=== PATIENT | female | born 1955 | race Caucasian/White ===

== ENCOUNTER 2017-08-11 21:38 | Inpatient (IN) | payer BC, OTHER ==
[2017-08-11 21:38] VITALS: BMI 34.7
[2017-08-11] MEDS ORDERED: Sodium Chloride 0.9% 1,000 ML IV STA (22:44)
[2017-08-11 23:07] LABS: URINE BILIRUBIN NEGATIVE (NEGATIVE); URINE BLOOD NEGATIVE (NEGATIVE); URINE GLUCOSE (UA) NEGATIVE (NEGATIVE); URINE KETONE NEGATIVE (NEGATIVE); URINE LEUKOCYTE ESTERASE NEGATIVE Leu/uL (NEGATIVE); URINE PROTEIN TRACE mg/dL (<30 mg/dL); URINE UROBILINOGEN 0.2 E.U./dL (<1 E.U./dL)
[2017-08-11 23:09] LABS: BASO # 0.03 K/mm3 (0.0-2.0); BASO % 0.2 % (0.0-3.0); GRAN # 14.57 (1.4-6.5); GRAN % 85.7 % (50.0-68.0); HEMATOCRIT 40.4 % (36.0-48.0); LYMPH # 1.4 (1.2-3.4); LYMPH % 7.9 % (22.0-35.0); MEAN CELL VOLUME 85.6 fl (80.0-105.0); MEAN CORPUSCULAR HEMOGLOBIN 28.4 pg (25.0-35.0); MEAN CORPUSCULAR HGB CONC 33.2 g/dl (31.0-37.0); MEAN PLATELET VOLUME 10.2 fl (7.0-11.0); MONO # 1.1 (0.1-0.6); MONO % 6.2 % (1.0-6.0); RED CELL DISTRIBUTION WIDTH 13.9 % (11.5-14.5)
[2017-08-11 23:11] LABS: URINE APPEARANCE CLEAR (CLEAR); URINE COLOR YELLOW (YELLOW)
[2017-08-11 23:18] LABS: ALB/GLOB RATIO 1.1 (1.1-1.8); ALKALINE PHOSPHATASE 76 U/L (38-126); ALT/SGPT 27 U/L (7-56); AST/SGOT 26 U/L (14-36); BLOOD UREA NITROGEN 16 mg/dL (7-21); CALCIUM 9.4 mg/dL (8.4-10.5); CARBON DIOXIDE 31 mmol/L (21-33); CHLORIDE 99 mmol/L (95-110); GFR AFRICAN-AMERICAN > 60; GLUCOSE,RANDOM 138 mg/dL (70-110); LIPASE 84 U/L (23-300); POTASSIUM 3.6 mmol/L (3.6-5.0); SODIUM 140 mmol/L (132-148); TOTAL PROTEIN 7.7 g/dL (5.8-8.3)
[2017-08-11 23:22] LABS: URINE BACTERIA FEW (NEG); URINE EPITHELIAL CELLS 0 - 2 /hpf (0-5); URINE RBC 0 - 2 /hpf (0-2); URINE WBC 0 - 2 /hpf (0-6)
[2017-08-11 23:23] LABS: URINE AMORPHOUS SEDIMENT OCC
--- NOTE | 2017-08-11 23:38 | ED PDOC ---
Arrival/HPI <Ahsan Johnson - Last Filed: 08/12/17 05:25> - General Historian: Patient - History of Present Illness Time/Duration: < week (3-4 days) Symptom Onset: Gradual Symptom Course: Unchanged Activities at Onset: Light Context: Home <Iza Muller PA-C - Last Filed: 08/12/17 15:12> - General Chief Complaint: Abdominal Pain Time Seen by Provider: 08/11/17 22:23 - History of Present Illness Narrative History of Present Illness (Text): 08/11/17 22:40 62 year old female who presents to the Emergency department complaining of intermittent suprapubic pain for the past 3-4 days. Patient reports pain radiates to her back with associated nausea, vomiting, chills, and dysuria today. Patient states she saw her PMD when her symptoms started initially who ordered outpatient ultrasounds but does not know the results yet. Patient states she was at [facility] earlier today and waited in the ER but was never actually evaluated. Patient denies any colonscopy/endoscopy, chest pain, shortness of breath, nausea, vomiting, diarrhea, constipation, neck pain, headache, dizziness, or any other complaints. PMD: Dr. Xena Garcia (Iza Muller PA-C) Past Medical History - Provider Review Nursing Documentation Reviewed: Yes - Infectious Disease Hx of Infectious Diseases: None - Cardiac Hx Cardiac Disorders: Yes Hx Hypertension: Yes - Pulmonary Hx Respiratory Disorders: No - Neurological Hx Neurological Disorder: No - HEENT Hx HEENT Disorder: Yes (uses glasses) - Renal Hx Renal Disorder: No - Endocrine/Metabolic Hx Endocrine Disorders: Yes Hx Diabetes Mellitus Type 2: Yes Hx Hypothyroidism: Yes - Hematological/Oncological Hx Blood Disorders: No - Integumentary Hx Dermatological Disorder: No - Musculoskeletal/Rheumatological Hx Falls: No - Gastrointestinal Hx Gastrointestinal Disorders: No - Genitourinary/Gynecological Hx Genitourinary Disorders: No - Psychiatric Hx Psychophysiologic Disorder: No Hx Substance Use: No - Anesthesia Hx Anesthesia: No <Iza Muller PA-C - Last Filed: 08/12/17 15:12> Family/Social History - Physician Review Nursing Documentation Reviewed: Yes Family/Social History: Unknown Family HX Smoking Status: Never Smoked Hx Alcohol Use: No Hx Substance Use: No <Iza Muller PA-C - Last Filed: 08/12/17 15:12> Allergies/Home Meds <ElizabethAhsan - Last Filed: 08/12/17 05:25> <Iza Muller PA-C - Last Filed: 08/12/17 15:12> Allergies/Adverse Reactions: Allergies No Known Allergies Allergy (Verified 08/11/17 21:48) Home Medications: Home Meds Medication Instructions Recorded Confirmed Atenolol [Tenormin] 25 mg PO DAILY 03/21/15 08/12/17 Levothyroxine [Synthriod Inj] 88 mcg IV DAILY 03/21/15 08/12/17 Metformin HCl [Glumetza] 1,000 mg PO DAILY 03/21/15 08/12/17 Review of Systems - Physician Review All systems were reviewed & negative as marked: Yes - Review of Systems Constitutional: Other (+chills). absent: Fevers Eyes: Normal ENT: Normal Respiratory: Normal. absent: SOB, Cough Cardiovascular: Normal. absent: Chest Pain Gastrointestinal: Abdominal Pain, Nausea, Vomiting. absent: Diarrhea Genitourinary Female: Dysuria Musculoskeletal: absent: Neck Pain Skin: Normal. absent: Rash Neurological: Normal. absent: Headache, Dizziness Endocrine: Normal Hemo/Lymphatic: Normal Psychiatric: Normal <Iza Muller PA-C - Last Filed: 08/12/17 15:12> Physical Exam Vital Signs Reviewed: Yes Temperature: Afebrile Blood Pressure: Normal Pulse: Regular Respiratory Rate: Normal Appearance: Positive for: Well-Appearing, Non-Toxic, Comfortable Pain Distress: None Mental Status: Positive for: Alert and Oriented X 3 Finger Stick Blood Glucose: 165 - Systems Exam Head: Present: Atraumatic, Normocephalic Pupils: Present: PERRL Extroacular Muscles: Present: EOMI Conjunctiva: Present: Normal Mouth: Present: Moist Mucous Membranes Neck: Present: Normal Range of Motion Respiratory/Chest: Present: Clear to Auscultation, Good Air Exchange. No: Respiratory Distress, Accessory Muscle Use Cardiovascular: Present: Regular Rate and Rhythm, Normal S1, S2. No: Murmurs Abdomen: Present: Tenderness (Mild suprapubic tenderness), Normal Bowel Sounds. No: Distention, Peritoneal Signs Back: Present: Normal Inspection Upper Extremity: Present: Normal Inspection. No: Cyanosis, Edema Lower Extremity: Present: Normal Inspection. No: Edema Neurological: Present: GCS=15, CN II-XII Intact, Speech Normal Skin: Present: Warm, Dry, Normal Color. No: Rashes Psychiatric: Present: Alert, Oriented x 3, Normal Insight, Normal Concentration <Iza Muller PA-C - Last Filed: 08/12/17 15:12> Vital Signs Temp Pulse Resp BP Pulse Ox 08/12/17 05:15 83 16 100/62 93 L 08/12/17 04:00 99.4 F 78 18 94/57 L 96 08/12/17 00:06 100.4 F H 08/11/17 23:45 100.4 F H 98 H 18 146/55 L 95 08/11/17 21:40 98.1 F 82 20 130/93 H 96 Medical Decision Making <Ahsan Johnson - Last Filed: 08/12/17 05:25> <Iza Muller PA-C - Last Filed: 08/12/17 15:12> ED Course and Treatment: 08/11/17 22:40 Impression: 62 year old female complaining of suprapubic pain radiating to back with nausea , vomiting, chills, and dysuria. Differential Diagnosis included but are not limited to: UTI, pyelonephritis, colitis Plan: -- EKG -- Labs, lipase -- Urinalysis, urine cultures -- IV fluids -- Toradol -- Zofran -- Patient placed in ED observation (Iza Muller PA-C) - Lab Interpretations Lab Results: 08/11/17 22:25 08/11/17 22:25 Lab Results 08/11/17 22:58: Urine Color Yellow, Urine Appearance Clear, Urine pH 8.0, Ur Specific [place] 1.015, Urine Protein Trace H, Urine Glucose (UA) Negative, Urine Ketones Negative, Urine Blood Negative, Urine Nitrate Negative, Urine Bilirubin Negative, Urine Urobilinogen 0.2, Ur Leukocyte Esterase Negative, Urine RBC 0 - 2, Urine WBC 0 - 2, Ur Epithelial Cells 0 - 2, Amorphous Sediment Occ, Urine Bacteria Few 08/11/17 22:25: Sodium 140, Potassium 3.6, Chloride 99, Carbon Dioxide 31, Anion Gap 14, BUN 16, Creatinine 0.6, Est GFR ( Amer) > 60, Est GFR (Non- Af Amer) > 60, Random Glucose 138 H, Calcium 9.4, Total Bilirubin 1.0, AST 26, ALT 27, Alkaline Phosphatase 76, Total Protein 7.7, Albumin 4.0, Globulin 3.6, Albumin/Globulin Ratio 1.1, Lipase 84 08/11/17 22:25: WBC 17.0 H D, RBC 4.72, Hgb 13.4, Hct 40.4, MCV 85.6, MCH 28.4, MCHC 33.2, RDW 13.9, Plt Count 204, MPV 10.2, Gran % 85.7 H, Lymph % (Auto) 7.9 L, Till[place] % (Auto) 6.2 H, Eos % (Auto) 0.0 L, Baso % (Auto) 0.2, Gran # 14.57 H, Lymph # 1.4, Tillman # 1.1 H, Eos # 0.0, Baso # 0.03 - RAD Interpretation Radiology Orders: 08/11/17 23:56 ABD PELVIS PO & IV CONTRAST [CT] Stat 08/11/17 23:57 CHEST TWO VIEWS (PA/LAT) [RAD] Stat - Medication Orders Current Medication Orders: Acetaminophen (Tylenol 325mg Tab) 650 mg PO Q6H PRN PRN Reason: Fever >100.4 F Acetaminophen (Tylenol 325mg Tab) 650 mg PO Q6H PRN PRN Reason: Pain, moderate (4-7) Hydromorphone HCl (Dilaudid) 0.5 mg IVP Q4H PRN PRN Reason: Pain, severe (8-10) Lactated Ringer's (Lactated Ringer's) 1,000 mls @ 125 mls/hr IV .Q8H [facility] Last Admin: 08/12/17 07:19 Dose: 125 mls/hr eMAR Start Stop Document 08/12/17 07:19 [facility] (Rec: 08/12/17 07:19 [facility] [id number]) Intravenous Solution Start Date 08/12/17 Start Time 07:19 Metronidazole (Flagyl) 500 mg in 100 mls @ 100 mls/hr IVPB Q8 ANA MARIA PRN Reason: Protocol Meropenem 1g/NS 100mL IVPB (Meropenem 1g/Ns 100ml Ivpb) 1 gm in 100 mls @ 100 mls/hr IVPB Q8 ANA MARIA PRN Reason: Protocol Insulin Human Regular (Humulin R Low) 0 units SC ACHS ANA MARIA PRN Reason: Protocol Last Admin: 08/12/17 08:43 Dose: 1 units MAR Blood Glucose Document 08/12/17 08:43 LMN (Rec: 08/12/17 08:43 LMN [id number]) Blood Glucose Finger Stick Blood Glucose (70-120) 181 Subcutaneous Administrations Document 08/12/17 08:43 LMN (Rec: 08/12/17 08:43 LMN [id number]) Injection Site MAR Injection Site Right Arm Charges for Administration # of Subcutaneous Administrations 1 Ondansetron HCl (Zofran Inj) 4 mg IVP Q4H PRN PRN Reason: Nausea/Vomiting Pantoprazole Sodium (Protonix Inj) 40 mg IVP DAILY [facility] Last Admin: 08/12/17 10:28 Dose: 40 mg IVP Administration Document 08/12/17 10:28 LMN (Rec: 08/12/17 10:28 LMN [id number]) Charges for Administration # of IVP Administrations 1 Discontinued Medications Acetaminophen (Tylenol 325mg Tab) 975 mg PO STAT STA Stop: 08/11/17 23:57 Last Admin: 08/12/17 00:06 Dose: 975 mg MAR Pain/Vitals Document 08/12/17 00:06 YP (Rec: 08/12/17 00:06 YP [id number]) Vitals Temperature (97.6 F-99.6 F) 100.4 F Temperature Source Oral Re-Assess: MAR Pain/Vitals Document 08/12/17 01:06 YP (Rec: 08/12/17 01:07 YP [id number]) Pain Reassessment Is This A Pain ReAssessment? No Sleep Is patient sleeping during reassessment? No Presence of Pain Presence of Pain No Hydromorphone HCl (Dilaudid) 0.5 mg IVP Q4H PRN PRN Reason: Pain, severe (8-10) Last Admin: 08/12/17 10:53 Dose: 0.5 mg MAR Pain Assessment Document 08/12/17 10:53 LMN (Rec: 08/12/17 10:53 LMN [id number]) Pain Reassessment Is this a pain reassessment? No Presence of Pain Presence of Pain Yes Pain Scale Used Pain Scale Used Numeric Location Upper or Lower Lower Pain Location Body Site Abdomen Description Description Constant Intensity of Pain at present 5 Pain Behavior Guarding Withdrawal from Touch IVP Administration Document 08/12/17 10:53 LMN (Rec: 08/12/17 10:53 LMN [id number]) Charges for Administration # of IVP Administrations 1 Sodium Chloride (Sodium Chloride 0.9%) 1,000 mls @ 1,000 mls/hr IV .Q1H STA Stop: 08/11/17 23:43 Last Admin: 08/11/17 23:03 Dose: 1,000 mls/hr eMAR Start Stop Document 08/11/17 23:03 YP (Rec: 08/11/17 23:03 YP [id number]) Intravenous Solution Start Date 08/11/17 Start Time 23:03 End Date 08/12/17 End time 00:03 Total Infusion Time 60 Piperacillin Sod/Tazobactam Sod (Zosyn 3.375 In Ns 100ml) 100 mls @ 200 mls/hr IV STAT STA PRN Reason: Protocol Stop: 08/12/17 05:17 Last Admin: 08/12/17 05:11 Dose: 200 mls/hr eMAR Start Stop Document 08/12/17 05:11 YP (Rec: 08/12/17 05:11 YP [id number]) Intravenous Solution Start Date 08/12/17 Start Time 05:11 End Date 08/12/17 End time 05:41 Total Infusion Time 30 Metronidazole (Flagyl) 500 mg in 100 mls @ 100 mls/hr IVPB STAT STA PRN Reason: Protocol Stop: 08/12/17 05:48 Last Admin: 08/12/17 07:09 Dose: 100 mls/hr eMAR Start Stop Document 08/12/17 07:09 [facility] (Rec: 08/12/17 07:10 [facility] [id number]) Intravenous Solution Start Date 08/12/17 Start Time 07:10 End Date 08/12/17 End time 08:10 Total Infusion Time 60 Piperacillin Sod/Tazobactam Sod (Zosyn 3.375 In Ns 100ml) 100 mls @ 200 mls/hr IVPB Q6 ANA MARIA PRN Reason: Protocol Stop: 08/12/17 18:29 Potassium Chloride (Potassium Chloride 10 Meq/100 Ml) 10 meq in 100 mls @ 100 mls/hr IVPB ONCE ONE Stop: 08/12/17 12:01 Vancomycin HCl (Vancomycin 1gm) 1 gm in 250 mls @ 167 mls/hr IVPB STAT STA PRN Reason: Protocol Stop: 08/12/17 12:28 Last Admin: 08/12/17 11:38 Dose: 167 mls/hr eMAR Start Stop Document 08/12/17 11:38 LMN (Rec: 08/12/17 11:38 LMN [id number]) Intravenous Solution Start Date 08/12/17 Start Time 11:40 Iohexol (Omnipaque 240 (50 Ml)) Confirm Administered Dose 50 ml .ROUTE .STK-MED ONE Stop: 08/12/17 00:24 Iohexol (Omnipaque 350 100 Ml) Confirm Administered Dose 350 mg .ROUTE .STK-MED ONE Stop: 08/12/17 02:11 Ketorolac Tromethamine (Toradol) 30 mg IVP STAT STA Stop: 08/11/17 22:45 Last Admin: 08/11/17 23:03 Dose: 30 mg TA Pain Assessment Document 08/11/17 23:03 YP (Rec: 08/11/17 23:03 YP [id number]) Pain Reassessment Is this a pain reassessment? No Sleep Is patient sleeping during reassessment? No Presence of Pain Presence of Pain Yes IVP Administration Document 08/11/17 23:03 YP (Rec: 08/11/17 23:03 YP [id number]) Charges for Administration # of IVP Administrations 1 Re-Assess: MAR Pain Assessment Document 08/12/17 00:03 YP (Rec: 08/12/17 01:07 YP [id number]) Pain Reassessment Is this a pain reassessment? Yes Sleep Is patient sleeping during reassessment? No Presence of Pain Presence of Pain No Morphine Sulfate (Morphine) 1 mg IVP STAT STA Stop: 08/12/17 05:58 Last Admin: 08/12/17 07:20 Dose: 1 mg MAR Pain Assessment Document 08/12/17 07:20 SONYA (Rec: 08/12/17 07:21 [facility] [id number]) Pain Reassessment Is this a pain reassessment? No Presence of Pain Presence of Pain Yes Pain Scale Used Pain Scale Used Numeric Location Pain Location Body Site Abdomen Description Description Constant Intensity of Pain at present 6 Acceptable Level of Pain 2 Pain Behavior Facial Grimacing Alleviating Factors/Management Medication Techniques Alleviating Factors Medication IVP Administration Document 08/12/17 07:20 [facility] (Rec: 08/12/17 07:21 [facility] [id number]) Charges for Administration # of IVP Administrations 1 Ondansetron HCl (Zofran Inj) 4 mg IVP STAT STA Stop: 08/11/17 22:45 Last Admin: 08/11/17 23:03 Dose: 4 mg IVP Administration Document 08/11/17 23:03 YP (Rec: 08/11/17 23:03 YP [id number]) Charges for Administration # of IVP Administrations 1 ED OBSERVATION <Ahsan Johnson - Last Filed: 08/12/17 05:25> Date of observation admission: 08/11/17 Time of observation admission: 23:00 <Iza Muller PA-C - Last Filed: 08/12/17 15:12> - Observation admission statement Patient is being placed in observation because:: abdominal pain, elevated WBC (Iza Muller PA-C) - Goals of Observation Goals of observation are:: monitor signs and symptoms (Iza Muller PA-C) - Progress Note Progress Note: 08/12/17 02:00 Case endorsed to me by VERONA Muller, pending CT scan, re-evaluation, and disposition. 08/12/17 04:44 Reviewed radiology, CT Abdomen and Pelvis shows: CT Abdomen and Pelvis shows: LIMITATIONS: Mild to moderate streak/motion artifact. LOWER THORAX: Heart appears mildly enlarged. Small hiatal hernia. ABDOMEN: LIVER: .Fatty infiltration of the liver. GALLBLADDER AND BILE DUCTS: No CT evidence of acute cholecystitis. No evidence of significant biliary ductal dilatation. PANCREAS: No CT evidence of acute pancreatitis. SPLEEN: No acute abnormality of the spleen identified. ADRENALS: No acute abnormality of the adrenal glands identified. KIDNEYS AND URETERS: No acute abnormality of the kidneys identified. No evidence of significant hydrouereteronephrosis. STOMACH AND BOWEL: See findings below regarding the sigmoid colon. Otherwise, no significant abnormality of the bowel is identified. No evidence of bowel obstruction. APPENDIX: Appendix is seen, directly to the right of the suspected right pelvic abscess described below, however, it appears normal, containing air, with no findings to suggest acute appendicitis. PELVIS: BLADDER: No acute abnormality of the bladder identified. REPRODUCTIVE: See findings below regarding the right adnexa. No acute abnormality of the uterus identified. No evidence of large left adnexal masses. ABDOMEN and PELVIS: INTRAPERITONEAL SPACE: Best seen on images 41 of series 604 and 147 of series 5 , there is a 5 x 3.5 x 4.5 cm ovoid masslike area in the right pelvis, which is highly suspicious for a right pelvic abscess. This contains air within it, including a large air-fluid level, and has a thick, enhancing soft tissue rim. It is centered in the right adnexal region, and the right ovary is not definitely seen as a separate structure. The abscess is most likely the sequela of a previous episode of sigmoid diverticulitis. There is infiltration of the pelvic fat abutting the abscess, compatible with inflammation, which also abuts the sigmoid colon, which is focally thick-walled in the vicinity of this mass. A small amount of nearby fluid is also seen in the right pelvic retroperitoneal space, and there is a small amount of diffuse pelvic free fluid. No evidence of diffuse free intraperitoneal air. BONES/JOINTS: No acute fractures or other acute bony abnormality noted. SOFT TISSUES: No acute abnormality of the visualized soft tissues is seen. VASCULATURE: No evidence of abdominal aortic aneurysm. No evidence of periaortic hemorrhage. LYMPH NODES: No evidence of diffuse lymphadenopathy. IMPRESSION: - Findings highly suspicious for a 5 x 4.5 cm right pelvic abscess. This is centered in the right adnexa, and cannot exclude a right tubo-ovarian abscess. It is most likely related to a a prior episode of sigmoid diverticulitis. - See above for remaining findings. 08/12/17 04:[address] La, rn surgical [employer] credit [employer] manager, who is aware and agrees to evaluate pt. Surgeon credit union manager paged. 08/12/17 05:[address] Daigle, solar energy sales specialist, who states findings are most likely sequela of diverticulitis, however will consult on case if needed. 08/12/17 05:[address] Angulo, medical lead credit union manager, who is aware and agrees with plan. Case discussed with Dr. Rodney Davis, who is aware and agrees with plan. Accepts pt in to hospitalist service. Pt will be admitted to [facility] for abdominal pain, pelvic abscess, and leukocytosis. (Ahsan Johnson) 08/11/17 23:00 Vital signs stable, in no acute distress. 08/11/17 23:56 Labs reviewed, WBC of 17.0, no bandemia, chemistry within normal limits, LFTs normal. No UTI on Urinalysis. Considering temperature and elevated WBC, CT Abdomen and Pelvis ordered. Pt resting comfortably, in no acute distress. 08/12/17 01:55 Pt resting comfortably, no acute distress. Reviewed EKG, NSR at [address]-segment elevations or depressions, no T-wave inversions, normal intervals. Case endorsed to Dr. Johnson, pending CT scan, re-evaluation, and disposition. (Iza Muller PA-C) - PA / SENIOR SHAREPOINT ARCHITECT / Resident Statement MD/DO has reviewed & agrees with the documentation as recorded. MD/DO has examined the patient and agrees with the treatment plan. <Ahsan Johnson - Last Filed: 08/12/17 05:25> - Scribe Statement The provider has reviewed the documentation as recorded by the Scribe <Iza Muller PA-C - Last Filed: 08/12/17 15:12> - Scribe Statement Yasemin Khan Provider Scribe Attestation: All medical record entries made by the Scribe were at my direction and personally dictated by me. I have reviewed the chart and agree that the record accurately reflects my personal performance of the history, physical exam, medical decision making, and the department course for this patient. I have also personally directed, reviewed, and agree with the discharge instructions and disposition. (Iza Muller PA-C) Disposition/Present on Arrival - Present on Arrival Any Indicators Present on Arrival: No History of DVT/PE: No History of Uncontrolled Diabetes: No Urinary Catheter: No History of Decub. Ulcer: No History Surgical Site Infection Following: None - Disposition Have Diagnosis and Disposition been Completed?: Yes Disposition Time: 05:26 Patient Plan: Admission <Ahsan Johnson - Last Filed: 08/12/17 05:25> - Present on Arrival History of DVT/PE: No History of Uncontrolled Diabetes: No Urinary Catheter: No History of Decub. Ulcer: No History Surgical Site Infection Following: None <Iza Muller PA-C - Last Filed: 08/12/17 15:12> - Disposition Diagnosis: Abdominal pain, Pelvic abscess, Leukocytosis Disposition: HOSPITALIZED Patient Problems: Current Active Problems Problem Status Onset Abdominal pain Acute Leukocytosis Acute Pelvic abscess Acute Condition: STABLE
[2017-08-12] MEDS ORDERED: Iohexol 240 (50 ml) ONE (00:23)
[2017-08-12] MEDS ORDERED: Iohexol 350 MG/100 ML VIAL ONE (02:10)
--- NOTE | 2017-08-12 04:17 | CT ---
EXAM: CT Abdomen and Pelvis With Intravenous Contrast EXAM DATE/TIME: 08/11/2017 11:56 PM CLINICAL HISTORY: 62 years old, female; Pain; Abdominal pain; Generalized; Additional info: Fever, abd pain TECHNIQUE: Axial computed tomography images of the abdomen and pelvis with intravenous contrast. All CT scans at this facility use one or more dose reduction techniques, viz.: automated exposure control; ma/kV adjustment per patient size (including targeted exams where dose is matched to indication; i.e. head); or iterative reconstruction technique. Coronal and sagittal reformatted images were created and reviewed. CONTRAST: 96 mL of omni 350 administered intravenously. COMPARISON: Recent pelvic ultrasound 08/08/2017 7:39 AM FINDINGS: LIMITATIONS: Mild to moderate streak/motion artifact. LOWER THORAX: Heart appears mildly enlarged. Small hiatal hernia. ABDOMEN: LIVER: .Fatty infiltration of the liver. GALLBLADDER AND BILE DUCTS: No CT evidence of acute cholecystitis. No evidence of significant biliary ductal dilatation. PANCREAS: No CT evidence of acute pancreatitis. SPLEEN: No acute abnormality of the spleen identified. ADRENALS: No acute abnormality of the adrenal glands identified. KIDNEYS AND URETERS: No acute abnormality of the kidneys identified. No evidence of significant hydrouereteronephrosis. STOMACH AND BOWEL: See findings below regarding the sigmoid colon. Otherwise, no significant abnormality of the bowel is identified. No evidence of bowel obstruction. APPENDIX: Appendix is seen, directly to the right of the suspected right pelvic abscess described below, however, it appears normal, containing air, with no findings to suggest acute appendicitis. PELVIS: BLADDER: No acute abnormality of the bladder identified. REPRODUCTIVE: See findings below regarding the right adnexa. No acute abnormality of the uterus identified. No evidence of large left adnexal masses. ABDOMEN and PELVIS: INTRAPERITONEAL SPACE: Best seen on images 41 of series 604 and 147 of series 5, there is a 5 x 3.5 x 4.5 cm ovoid masslike area in the right pelvis, which is highly suspicious for a right pelvic abscess. This contains air within it, including a large air-fluid level, and has a thick, enhancing soft tissue rim. It is centered in the right adnexal region, and the right ovary is not definitely seen as a separate structure. The abscess is most likely the sequela of a previous episode of sigmoid diverticulitis. There is infiltration of the pelvic fat abutting the abscess, compatible with inflammation, which also abuts the sigmoid colon, which is focally thick-walled in the vicinity of this mass. A small amount of nearby fluid is also seen in the right pelvic retroperitoneal space, and there is a small amount of diffuse pelvic free fluid. No evidence of diffuse free intraperitoneal air. BONES/JOINTS: No acute fractures or other acute bony abnormality noted. SOFT TISSUES: No acute abnormality of the visualized soft tissues is seen. VASCULATURE: No evidence of abdominal aortic aneurysm. No evidence of periaortic hemorrhage. LYMPH NODES: No evidence of diffuse lymphadenopathy. IMPRESSION: - Findings highly suspicious for a 5 x 4.5 cm right pelvic abscess. This is centered in the right adnexa, and cannot exclude a right tubo-ovarian abscess. It is most likely related to a a prior episode of sigmoid diverticulitis. - See above for remaining findings.
[2017-08-12] MEDS ORDERED: Piperacillin/Tazobact 3.375 gm 100 ML IV STA (04:48)
[2017-08-12] MEDS ORDERED: metroNIDAZOLE IV 500 mg/100 ml 500 MG/100 ML BAG IVPB STA (04:49)
[2017-08-12] MEDS ORDERED: Morphine 2 mg/ml ISec IVP STA (05:57)
--- NOTE | 2017-08-12 06:12 | CP.PCM.CON ---
<Елена La - Last Filed: 08/12/17 07:45> History of Present Illness - History of Present Illness History of Present Illness: General surgery consult for Dr. Donna La, PGY-1 Pt S & E at bedside. 62F w/PMH sig for DM consulted for abdominal pain x 1 wk. Pt reports abdominal pain is suprapubic, severe, radiates to low back B/L w/sudden onset, no alleviating or aggravating factors identified. Pt reports previous episode of LLQ abdominal pain, evaluated in [place] with findings of "colon problems"- was instructed to have colonoscopy, which she did not complete. Admits to nausesa, emesis x 3 (nbnb, foodstuff) yesterday, F/C, dysuria. Last BM was one day prior to admission, normal caliber/normal consistency, occasional constipation. Denies diarrhea, hematochezia, hematuria, vaginal d/c, urinary frequency, sexual intercourse. In ED- CT abdomen w/findings of 5 x 4.5 cm right pelvic abscess, centered in right adnexa, and cannot exclude a right tubo-ovarian abscess. It is most likely related to a a prior episode of sigmoid diverticulitis. Leukocytosis of 17, febrile at 100.4 PMH: DM, "thyroid problems" on Levothyroxine PSH: Denies All: NKDA SH: Denies tobacco, Etoh or illicit drug use Review of Systems - Review of Systems All systems: reviewed and no additional remarkable complaints except - Constitutional Constitutional: Chills, Fever - EENT Eyes: absent: Change in Vision Nose/Mouth/Throat: absent: Sore Throat - Cardiovascular Cardiovascular: absent: Chest Pain, Palpitations - Respiratory Respiratory: absent: Cough - Gastrointestinal Gastrointestinal: Abdominal Pain, Constipation (occasional), Nausea, Vomiting. absent: Diarrhea, Hematemesis, Hematochezia, Melena - Genitourinary Genitourinary: Dysuria. absent: Urinary Frequency - Reproductive: Female Reproductive:Female: absent: Vaginal Discharge - Musculoskeletal Musculoskeletal: absent: Numbness, Tingling - Integumentary Integumentary: absent: Rash Past Patient History - Infectious Disease Hx of Infectious Diseases: None - Past Social History Smoking Status: Never Smoked - CARDIAC Hx Cardiac Disorders: Yes Hx Hypertension: Yes - PULMONARY Hx Respiratory Disorders: No - NEUROLOGICAL Hx Neurological Disorder: No - HEENT Hx HEENT Problems: Yes (uses glasses) - RENAL Hx Chronic Kidney Disease: No - ENDOCRINE/METABOLIC Hx Endocrine Disorders: Yes Hx Diabetes Mellitus Type 2: Yes Hx Hypothyroidism: Yes - HEMATOLOGICAL/ONCOLOGICAL Hx Blood Disorders: No - INTEGUMENTARY Hx Dermatological Problems: No - MUSCULOSKELETAL/RHEUMATOLOGICAL Hx Falls: No - GASTROINTESTINAL Hx Gastrointestinal Disorders: No - GENITOURINARY/GYNECOLOGICAL Hx Genitourinary Disorders: No - PSYCHIATRIC Hx Psychophysiologic Disorder: No Hx Substance Use: No - SURGICAL HISTORY Hx Surgeries: No - ANESTHESIA Hx Anesthesia: No Meds Allergies/Adverse Reactions: Allergies Allergy/AdvReac Type Severity Reaction Status Date / Time No Known Allergies Allergy Verified 08/11/17 21:48 - Medications Medications: Current Medications Acetaminophen (Tylenol 325mg Tab) 650 mg PO Q6H PRN PRN Reason: Fever >100.4 F Acetaminophen (Tylenol 325mg Tab) 650 mg PO Q6H PRN PRN Reason: Pain, moderate (4-7) Lactated Ringer's (Lactated Ringer's) 1,000 mls @ 125 mls/hr IV .Q8H ANA MARIA Piperacillin Sod/Tazobactam Sod (Zosyn 3.375 In Ns 100ml) 100 mls @ 200 mls/hr IVPB Q6 ANA MARIA PRN Reason: Protocol Stop: 08/12/17 12:29 Insulin Human Regular (Humulin R Low) 0 units SC ACHS ANA MARIA PRN Reason: Protocol Ondansetron HCl (Zofran Inj) 4 mg IVP Q4H PRN PRN Reason: Nausea/Vomiting Pantoprazole Sodium (Protonix Inj) 40 mg IVP DAILY [facility] Physical Exam - Constitutional Appears: Non-toxic, No Acute Distress - Head Exam Head Exam: ATRAUMATIC, NORMAL INSPECTION, NORMOCEPHALIC - Eye Exam Eye Exam: EOMI, Normal appearance - ENT Exam ENT Exam: Mucous Membranes Moist, Normal Exam - Neck Exam Neck exam: Positive for: Full Rom, Normal Inspection - Respiratory Exam Respiratory Exam: Clear to Auscultation Bilateral, NORMAL BREATHING PATTERN - Cardiovascular Exam Cardiovascular Exam: REGULAR RHYTHM, +S1, +S2 - GI/Abdominal Exam GI & Abdominal Exam: Diminished Bowel Sounds, Soft, Tenderness (diffuse, especially suprapubic). absent: Distended (obese), Firm, Guarding, Rebound, Rigid - Extremities Exam Extremities exam: Positive for: normal inspection. Negative for: pedal edema - Neurological Exam Neurological exam: Alert, CN II-XII Intact, Oriented x3 - Psychiatric Exam Psychiatric exam: Normal Affect, Normal Mood - Skin Skin Exam: Dry, Intact, Normal Color, Warm Results - Vital Signs Recent Vital Signs: Last Vital Signs Temp 99.4 F 08/12/17 04:00 Pulse 83 08/12/17 05:15 Resp 16 08/12/17 05:15 BP 100/62 08/12/17 05:15 Pulse Ox 93 L 08/12/17 05:15 - Labs Result Diagrams: 08/11/17 22:25 08/11/17 22:25 Assessment & Plan - Assessment and Plan (Free Text) Assessment: 62F w/pelvic abscess, likely 2/2 sigmoid diverticulitis Plan: NPO for now Already on Flagyl, Zosyn Zofran LR@125 pain regimen Recommend IR drainage DW attending Bessie, PGY-1 - Date & Time Date: 08/12/17 Time: 06:11 <Jonas Singh - Last Filed: 08/13/17 21:31> Meds - Medications Medications: Current Medications Acetaminophen (Tylenol 325mg Tab) 650 mg PO Q6H PRN PRN Reason: Pain, moderate (4-7) Hydromorphone HCl (Dilaudid) 0.5 mg IVP Q4H PRN PRN Reason: Pain, severe (8-10) Last Admin: 08/13/17 11:08 Dose: 0.5 mg Lactated Ringer's (Lactated Ringer's) 1,000 mls @ 125 mls/hr IV .Q8H ANA MARIA Last Admin: 08/13/17 15:25 Dose: 125 mls/hr Metronidazole (Flagyl) 500 mg in 100 mls @ 100 mls/hr IVPB Q8 ANA MARIA PRN Reason: Protocol Last Admin: 08/13/17 16:57 Dose: 100 mls/hr Meropenem 1g/NS 100mL IVPB (Meropenem 1g/Ns 100ml Ivpb) 1 gm in 100 mls @ 100 mls/hr IVPB Q8 ANA MARIA PRN Reason: Protocol Last Admin: 08/13/17 15:17 Dose: 100 mls/hr Insulin Human Regular (Humulin R Low) 0 units SC ACHS ANA MARIA PRN Reason: Protocol Last Admin: 08/13/17 16:58 Dose: Not Given Levothyroxine Sodium (Synthroid) 25 mcg IVP DAILY [facility] Ondansetron HCl (Zofran Inj) 4 mg IVP Q4H PRN PRN Reason: Nausea/Vomiting Pantoprazole Sodium (Protonix Inj) 40 mg IVP DAILY [facility] Last Admin: 08/13/17 11:06 Dose: 40 mg Results - Vital Signs Recent Vital Signs: Last Vital Signs Temp 98.1 F 08/13/17 16:00 Pulse 97 H 08/13/17 16:00 Resp 20 08/13/17 16:00 BP 125/74 08/13/17 16:00 Pulse Ox 98 08/13/17 16:00 - Labs Result Diagrams: 08/13/17 07:33 08/13/17 07:33 Labs: Laboratory Results - last 24 hr 08/12/17 08/13/17 08/13/17 21:38 07:00 07:20 WBC RBC Hgb Hct MCV MCH MCHC RDW Plt Count MPV Gran % Lymph % (Auto) [place] % (Auto) Eos % (Auto) Baso % (Auto) Gran # Lymph # [place] # Eos # Baso # Sodium Potassium Chloride Carbon Dioxide Anion Gap BUN Creatinine Est GFR ( Amer) Est GFR (Non-Af Amer) POC Glucose (mg/dL) 102 106 Random Glucose Calcium Phosphorus Magnesium Total Bilirubin AST ALT Alkaline Phosphatase Total Protein Albumin Globulin Albumin/Globulin Ratio Thyroxine (T4) 6.1 08/13/17 08/13/17 08/13/17 07:33 07:33 11:17 WBC 17.6 H RBC 4.07 Hgb 11.4 L Hct 35.0 L MCV 86.0 MCH 28.0 MCHC 32.6 RDW 14.3 Plt Count 178 MPV 10.8 Gran % 84.3 H Lymph % (Auto) 10.7 L [place] % (Auto) 4.8 Eos % (Auto) 0.1 L Baso % (Auto) 0.1 Gran # 14.84 H Lymph # 1.9 [place] # 0.8 H Eos # 0.0 Baso # 0.02 Sodium 139 Potassium 3.5 L Chloride 102 Carbon Dioxide 29 Anion Gap 12 BUN 11 Creatinine 0.7 Est GFR ( Amer) > 60 Est GFR (Non-Af Amer) > 60 POC Glucose (mg/dL) 113 H Random Glucose 106 Calcium 8.3 L Phosphorus 2.9 Magnesium 1.8 Total Bilirubin 1.2 AST 25 ALT 28 Alkaline Phosphatase 66 Total Protein 6.1 Albumin 3.0 Globulin 3.0 Albumin/Globulin Ratio 1.0 L Thyroxine (T4) 08/13/17 16:35 WBC RBC Hgb Hct MCV MCH MCHC RDW Plt Count MPV Gran % Lymph % (Auto) [place] % (Auto) Eos % (Auto) Baso % (Auto) Gran # Lymph # [place] # Eos # Baso # Sodium Potassium Chloride Carbon Dioxide Anion Gap BUN Creatinine Est GFR ( Amer) Est GFR (Non-Af Amer) POC Glucose (mg/dL) 110 Random Glucose Calcium Phosphorus Magnesium Total Bilirubin AST ALT Alkaline Phosphatase Total Protein Albumin Globulin Albumin/Globulin Ratio Thyroxine (T4) Attending/Attestation - Attestation I have personally seen and examined this patient.: Yes I have fully participated in the care of the patient.: Yes I have reviewed all pertinent clinical information: Yes Notes (Text): 08/13/17 21:30 Pt was seen and examined at bedside Agree with above note and assessment Pt with Sigmoid diverticulitis with pelvic abscess LLQ tenderness Labs and radiology reviewed. c/w IV antibiotics IR consult for drainage of pelvic abscess c.w current mx we will f.u Plan d.w pt in detail. Risk and benefit explained in detail.
--- NOTE | 2017-08-12 06:34 | CP.PCM.HP ---
<KevKip - Last Filed: 08/12/17 06:22> History of Present Illness - History of Present Illness History of Present Illness: CC: Abdominal Pain HPI: 62 F PMHx pertinent for Diverticulitis, presents with 4 days duration of sharp suprapubic abdominal pain radiating to her back (started today) 07/27 that is made worse by laying flat and has associated symptoms of f/ch/n/v. Patient states the pain started while she was at home, not doing anything out of the ordinary, and has progressively gotten worse. She states she has never had this kind of pain before. Pt denies any other bowel complaints, including hematochezia, diarrhea, constipation. Pt denies hematuria, urinary changes. Pt denies cp/sob. No further complaints. PSH: Pt denies PMH: HTN, HLD, DM, Sigmoid Diverticulitis All: PCN SocHx: No EtOH, No Substances, No tobacco FamHx: Non-contributory Meds: None Present on Admission - Present on Admission Any Indicators Present on Admission: No Review of Systems - Hematologic/Lymphatic Additional comments: ROS: Constitutional: +F/Ch; no generalized weakness ENT: pt denies dysphagia, otalgia, hearing deficit, rhinorrhea Eyes: pt denies sudden loss of vision, diplopia, blurred vision MSK: pt denies muscle stiffness, joint pain, extremity cramping Cardio: pt denies sob, heart murmur, cp Pulm: pt denies cough, hemoptysis, wheeze GI: +SEE HPI : pt denies burning on urination, urinary frequency, hematuria, urinary urgency Neuro: pt denies paresis, paresthesia, dizziness, calix, numbness, tingling Derm: pt denies skin changes, lesions, nail changes Endo: pt denies intolerance to heat/cold, diaphoresis, night sweats, polydipsia Psych: pt denies anxiety, depression, mood changes Past Patient History - Infectious Disease Hx of Infectious Diseases: None - Past Social History Smoking Status: Never Smoked - CARDIAC Hx Cardiac Disorders: Yes Hx Hypertension: Yes - PULMONARY Hx Respiratory Disorders: No - NEUROLOGICAL Hx Neurological Disorder: No - HEENT Hx HEENT Problems: Yes (uses glasses) - RENAL Hx Chronic Kidney Disease: No - ENDOCRINE/METABOLIC Hx Endocrine Disorders: Yes Hx Diabetes Mellitus Type 2: Yes Hx Hypothyroidism: Yes - HEMATOLOGICAL/ONCOLOGICAL Hx Blood Disorders: No - INTEGUMENTARY Hx Dermatological Problems: No - MUSCULOSKELETAL/RHEUMATOLOGICAL Hx Falls: No - GASTROINTESTINAL Hx Gastrointestinal Disorders: No - GENITOURINARY/GYNECOLOGICAL Hx Genitourinary Disorders: No - PSYCHIATRIC Hx Psychophysiologic Disorder: No Hx Substance Use: No - SURGICAL HISTORY Hx Surgeries: No - ANESTHESIA Hx Anesthesia: No Meds Allergies/Adverse Reactions: Allergies Allergy/AdvReac Type Severity Reaction Status Date / Time No Known Allergies Allergy Verified 08/11/17 21:48 Physical Exam - Additional Findings Additional findings: Phys Exam: VS as below Constitutional: a&o x 4, nad Head and Neck: neck supple, no jvd, trachea midline, carotid midline, no cervical/head mass Eyes: bryce, nonicteric sclera, eom intact ENT: auditory acuity grossly intact, throat not congested, no nasal deformity Cardio: rrr, no m/r/g, no carotid bruit, nml s1, s2 Pulm: no accessory muscle use, equal nml breath sounds bilaterally, ctab Abd: +TTP in suprapubic region; s/nd, nbs x 4 q, no palpable masses Derm: no rashes, no ulcers, no lesions Extr: no edema, no cyanosis, no calf tenderness, no lesions, no varicosities Neuro: cn II-XII grossly intact, ue and le 5/5 muscle strength~bilaterally, no los ue, le bilaterally and core Results - Vital Signs Recent Vital Signs: Last Vital Signs Temp 99.4 F 08/12/17 04:00 Pulse 83 08/12/17 05:15 Resp 16 08/12/17 05:15 BP 100/62 08/12/17 05:15 Pulse Ox 93 L 08/12/17 05:15 - Labs Result Diagrams: 08/11/17 22:25 08/11/17 22:25 Assessment & Plan - Assessment and Plan (Free Text) Assessment: Assessment: 62 F with PMHx of Sigmoid Diverticulitis now presenting with pelvic abscess, which may be related. Pelvic Abscess - Lactated Ringers - Morphine - Zofran - Zosyn - NPO - AM Labs: CMP, CBC, Mg, Phos Hx/O DM - Low Dose SS - FS ACHS Hx/O HTN - Hold Atenolol pending surg Hx/O Hypothyroid - Hold levothyroxine pending surg PPXS - Protonix/SCDs TKS DO PGY-1. D/w Dr. Rodney Davis <Fabio Davis N - Last Filed: 08/13/17 06:16> Results - Vital Signs Recent Vital Signs: Last Vital Signs Temp 101.9 F H 08/12/17 18:45 Pulse 80 08/12/17 08:15 Resp 16 08/12/17 08:15 BP 93/60 L 08/12/17 08:15 Pulse Ox 95 08/12/17 08:15 - Labs Result Diagrams: 08/12/17 08:12 08/12/17 08:12 Labs: Laboratory Results - last 24 hr 08/12/17 08/12/17 08/12/17 07:34 08:12 08:12 WBC 18.6 H RBC 4.13 Hgb 11.6 L Hct 35.5 L MCV 86.0 MCH 28.1 MCHC 32.7 RDW 14.2 Plt Count 189 MPV 10.4 Gran % 83.3 H Lymph % (Auto) 10.2 L [place] % (Auto) 6.4 H Eos % (Auto) 0.0 L Baso % (Auto) 0.1 Gran # 15.51 H Lymph # 1.9 [place] # 1.2 H Eos # 0.0 Baso # 0.02 Sodium 142 Potassium 3.5 L Chloride 102 Carbon Dioxide 31 Anion Gap 13 BUN 12 Creatinine 0.7 Est GFR ( Amer) > 60 Est GFR (Non-Af Amer) > 60 POC Glucose (mg/dL) 149 H Random Glucose 134 H Hemoglobin A1c Lactic Acid Calcium 8.5 Phosphorus 3.7 Magnesium 1.8 Total Bilirubin 1.4 H AST 18 ALT 28 Alkaline Phosphatase 58 Total Protein 6.4 Albumin 3.3 Globulin 3.1 Albumin/Globulin Ratio 1.0 L Procalcitonin Free T4 Total T3 TSH 3rd Generation 08/12/17 08/12/17 08/12/17 10:59 10:59 10:59 WBC RBC Hgb Hct MCV MCH MCHC RDW Plt Count MPV Gran % Lymph % (Auto) [place] % (Auto) Eos % (Auto) Baso % (Auto) Gran # Lymph # [place] # Eos # Baso # Sodium Potassium Chloride Carbon Dioxide Anion Gap BUN Creatinine Est GFR ( Amer) Est GFR (Non-Af Amer) POC Glucose (mg/dL) Random Glucose Hemoglobin A1c 7.3 H Lactic Acid Calcium Phosphorus Magnesium Total Bilirubin AST ALT Alkaline Phosphatase Total Protein Albumin Globulin Albumin/Globulin Ratio Procalcitonin 0.08 L Free T4 1.11 Total T3 0.83 L TSH 3rd Generation 2.35 08/12/17 08/12/17 08/12/17 11:05 13:00 16:16 WBC RBC Hgb Hct MCV MCH MCHC RDW Plt Count MPV Gran % Lymph % (Auto) [place] % (Auto) Eos % (Auto) Baso % (Auto) Gran # Lymph # [place] # Eos # Baso # Sodium Potassium Chloride Carbon Dioxide Anion Gap BUN Creatinine Est GFR ( Amer) Est GFR (Non-Af Amer) POC Glucose (mg/dL) 143 H 120 H Random Glucose Hemoglobin A1c Lactic Acid 0.8 Calcium Phosphorus Magnesium Total Bilirubin AST ALT Alkaline Phosphatase Total Protein Albumin Globulin Albumin/Globulin Ratio Procalcitonin Free T4 Total T3 TSH 3rd Generation 08/12/17 21:38 WBC RBC Hgb Hct MCV MCH MCHC RDW Plt Count MPV Gran % Lymph % (Auto) [place] % (Auto) Eos % (Auto) Baso % (Auto) Gran # Lymph # [place] # Eos # Baso # Sodium Potassium Chloride Carbon Dioxide Anion Gap BUN Creatinine Est GFR ( Amer) Est GFR (Non-Af Amer) POC Glucose (mg/dL) 102 Random Glucose Hemoglobin A1c Lactic Acid Calcium Phosphorus Magnesium Total Bilirubin AST ALT Alkaline Phosphatase Total Protein Albumin Globulin Albumin/Globulin Ratio Procalcitonin Free T4 Total T3 TSH 3rd Generation
[2017-08-12] MEDS: Lactated Ringer's 1,000 ML IV SCH ×2 (07:19→21:37)
[2017-08-12 08:16] LABS: BASO # 0.02 K/mm3 (0.0-2.0); BASO % 0.1 % (0.0-3.0); GRAN # 15.51 (1.4-6.5); GRAN % 83.3 % (50.0-68.0); HEMATOCRIT 35.5 % (36.0-48.0); LYMPH # 1.9 (1.2-3.4); LYMPH % 10.2 % (22.0-35.0); MEAN CORPUSCULAR HEMOGLOBIN 28.1 pg (25.0-35.0); MEAN CORPUSCULAR HGB CONC 32.7 g/dl (31.0-37.0); MEAN PLATELET VOLUME 10.4 fl (7.0-11.0); MONO # 1.2 (0.1-0.6); MONO % 6.4 % (1.0-6.0); RED CELL DISTRIBUTION WIDTH 14.2 % (11.5-14.5); WHITE BLOOD COUNT 18.6 10^3/ul (4.5-11.0)
[2017-08-12 08:26] LABS: ALKALINE PHOSPHATASE 58 U/L (38-126); ALT/SGPT 28 U/L (7-56); AST/SGOT 18 U/L (14-36); BILIRUBIN,TOTAL 1.4 mg/dL (0.2-1.3); BLOOD UREA NITROGEN 12 mg/dL (7-21); CALCIUM 8.5 mg/dL (8.4-10.5); CARBON DIOXIDE 31 mmol/L (21-33); CHLORIDE 102 mmol/L (95-110); GFR AFRICAN-AMERICAN > 60; GLUCOSE,RANDOM 134 mg/dL (70-110); MAGNESIUM 1.8 mg/dL (1.7-2.2); PHOSPHOROUS 3.7 mg/dL (2.5-4.5); POTASSIUM 3.5 mmol/L (3.6-5.0); SODIUM 142 mmol/L (132-148); TOTAL PROTEIN 6.4 g/dL (5.8-8.3)
[2017-08-12] MEDS: Insulin Reg-LOW-Coverage SC SCH ×2 (08:43→21:39)
--- NOTE | 2017-08-12 08:52 | RAD ---
HISTORY: fever, abd pain COMPARISON: 03/20/2015 TECHNIQUE: Chest PA and lateral FINDINGS: LUNGS: No active pulmonary disease. PLEURA: No significant pleural effusion identified. No pneumothorax apparent. CARDIOVASCULAR: Normal. OSSEOUS STRUCTURES: No significant abnormalities. VISUALIZED UPPER ABDOMEN: Normal. OTHER FINDINGS: None. IMPRESSION: No active disease.
--- NOTE | 2017-08-12 09:35 | CARD ---
APPROVED REPORT EKG Measurement Heart [id number] <Conclusion> Normal sinus rhythm Possible Inferior infarct, age undetermined No change except increased voltage V 4 - 6
[2017-08-12] MEDS ORDERED: Levothyroxine 100 mcg (0.1 mg) Inj IVP SCH (10:00)
[2017-08-12] MEDS ORDERED: HYDROmorphone 0.5 mg/0.5 ml ISec IVP PRN (10:36)
[2017-08-12] MEDS ORDERED: Potassium Chloride 20 mEq ER Tab PO ONE (10:38)
[2017-08-12] MEDS ORDERED: Vancomycin 1gm in NS 250ml 1 GM/250 ML BAG IVPB SCH (10:45)
[2017-08-12] MEDS ORDERED: Vancomycin 1gm in NS 250ml 1 GM/250 ML BAG IVPB STA (10:59)
[2017-08-12] MEDS ORDERED: Piperacillin/Tazobact 3.375 gm 100 ML IVPB SCH ×2 (12:00)
[2017-08-12 12:21] LABS: FREE T4 1.11 ng/dL (0.78-2.19)
[2017-08-12 12:35] LABS: T3 0.83 ng/mL (0.97-1.69); THYROID STIMULATING HORMONE 2.35 mIU/mL (0.46-4.68)
[2017-08-12] MEDS ORDERED: Meropenem 1g/NS 100mL IVPB 100 ML IVPB SCH (14:00)
[2017-08-12] MEDS: Meropenem 1g/NS 100mL IVPB 1 GM/100 ML PIGGYBACK IVPB SCH ×2 (14:20→21:27)
--- NOTE | 2017-08-12 14:24 | US ---
HISTORY: pelvic abscess COMPARISON: None available. TECHNIQUE: Transabdominal and transvaginal FINDINGS: UTERUS: Measures 7.7 x 4.8 x 6.6 cm. Posterior intramural fibroid, 1.2 x 1.8 x 1.9 cm. No other discrete mass. ENDOMETRIUM: Measures 9 mm in diameter. Please note that a 9 mm endometrium is abnormal in a postmenopausal woman and should raise concern for endometrial hyperplasia or endometrial neoplasm. Further evaluation is advised. CERVIX: No cervical abnormality identified. RIGHT OVARY: Not discretely identified. Right adnexal mass seen measuring 1.4 x 2.6 x 4.0 cm. It is not clear that this corresponds to the collection of fluid and gas seen on CT examination of the same date. LEFT OVARY: Nonvisualized FREE FLUID: No significant free fluid noted. OTHER FINDINGS: None. IMPRESSION: 1.9 cm posterior intramural uterine fibroid. Thickened endometrium measuring 9 mm in width. This is abnormal in a postmenopausal patient and further evaluation is advised. Complex right adnexal mass, 4.0 cm in greatest dimension. No fluid collection identified. Normal ovaries are not discretely identified.
--- NOTE | 2017-08-12 15:02 | CP.PCM.PN ---
<JESSICALENO - Last Filed: 08/12/17 14:58> Subjective - Date & Time of Evaluation Date of Evaluation: 08/12/17 Time of Evaluation: 14:58 - Subjective Subjective: Medicine Progress Note for Dr. Estevez: Pt transferred from hospitalist service to Dr. Estevez. Pt seen and examined at bedside. Pt c/o b/l LQ abdominal pain that radiates to back. Pt c/o fever, chills, nausea, and vomiting. Pt denies CP, SOB, constipation, diarrhea, BRBPR, melena, hematuria, dysuria. Objective - Vital Signs/Intake and Output Vital Signs (last 24 hours): Temp Pulse Resp BP Pulse Ox 98.4 F 80 16 93/60 L 95 08/12/17 08:15 08/12/17 08:15 08/12/17 08:15 08/12/17 08:15 08/12/17 08:15 Intake and Output: 08/12/17 08/12/17 06:59 18:59 Intake Total 100 Balance 100 - Medications Medications: Current Medications Acetaminophen (Tylenol 325mg Tab) 650 mg PO Q6H PRN PRN Reason: Fever >100.4 F Acetaminophen (Tylenol 325mg Tab) 650 mg PO Q6H PRN PRN Reason: Pain, moderate (4-7) Hydromorphone HCl (Dilaudid) 0.5 mg IVP Q4H PRN PRN Reason: Pain, severe (8-10) Lactated Ringer's (Lactated Ringer's) 1,000 mls @ 125 mls/hr IV .Q8H [facility] Last Admin: 08/12/17 07:19 Dose: 125 mls/hr Metronidazole (Flagyl) 500 mg in 100 mls @ 100 mls/hr IVPB Q8 ANA MARIA PRN Reason: Protocol Meropenem 1g/NS 100mL IVPB (Meropenem 1g/Ns 100ml Ivpb) 1 gm in 100 mls @ 100 mls/hr IVPB Q8 ANA MARIA PRN Reason: Protocol Insulin Human Regular (Humulin R Low) 0 units SC ACHS ANA MARIA PRN Reason: Protocol Last Admin: 08/12/17 08:43 Dose: 1 units Ondansetron HCl (Zofran Inj) 4 mg IVP Q4H PRN PRN Reason: Nausea/Vomiting Pantoprazole Sodium (Protonix Inj) 40 mg IVP DAILY ANA MARIA Last Admin: 08/12/17 10:28 Dose: 40 mg - Labs Labs: 08/12/17 08:12 08/12/17 08:12 - Constitutional Appears: In Acute Distress - Head Exam Head Exam: ATRAUMATIC, NORMOCEPHALIC - Eye Exam Eye Exam: EOMI, PERRL Pupil Exam: PERRL - ENT Exam ENT Exam: Mucous Membranes Moist - Neck Exam Neck Exam: Full ROM - Respiratory Exam Respiratory Exam: Clear to Ausculation Bilateral. absent: Rales, Rhonchi, Wheezes - Cardiovascular Exam Cardiovascular Exam: RRR. absent: Gallop, Rubs, Murmur - GI/Abdominal Exam GI & Abdominal Exam: Guarding, Soft, Tenderness, Rebound (B/L LQ). absent: Distended, Firm - Extremities Exam Extremities Exam: Normal Inspection - Neurological Exam Neurological Exam: Awake, Oriented x3 - Psychiatric Exam Psychiatric exam: Normal Affect, Normal Mood - Skin Skin Exam: Dry, Intact, Normal Color, Warm Assessment and Plan - Assessment and Plan (Free Text) Assessment: 62 F with PMHx of Sigmoid Diverticulitis admitted for evaluation and treatment for pelvic abscess. Plan: 1. Pelvic Abscess - Transvaginal US showed 1.9 cm posterior intramural uterine fibroid, thickened endometrium 9 mm, complex right adnexal mass 4 cm - Abd/Pelvic CT showed highly suspicious for 5x4.5 cm right plevic abscess, cannot exclude right tubo-ovarian abscess - Pelvic/abd US from 08/08 showed hepatomegaly otherwise negative - ID Consulted Merrem 1g IVPB Q8H - IR Consulted - GI Consulted - Surgery Consulted - [employer] Consulted - Lactate WNL - F/U procal, chlaymydia/GC RNA, blood/urine cultures - NPO - LR at 125 ml/hr - Tylenol for mild pain - Dilaudid 0.5 q4h for sever pain - Zofran for nausea - Incentive spirometry to avoid atelectasis 2. H/O DM - Low Dose SS - FS ACHS - F/U HA1C 3. H/O HTN - Hold Atenolol pending surg 4. H/O Hypothyroid - Hold levothyroxine pending surg - TSH, Free T4 WNL GI/DVT PPx - Protonix/SCDs Pt seen and discussed in detail with Dr. Estevez. Tee Adrian, PGY1 <Rusty Estevez U - Last Filed: 08/16/17 21:54> Objective - Vital Signs/Intake and Output Vital Signs (last 24 hours): Temp Pulse Resp BP Pulse Ox 97.9 F 73 18 136/76 96 08/16/17 08:00 08/16/17 08:00 08/16/17 08:00 08/16/17 08:00 08/16/17 08:00 Intake and Output: 08/16/17 08/17/17 18:59 06:59 Intake Total 480 Balance 480 - Labs Labs: 08/16/17 05:30 08/16/17 05:30 Attending/Attestation - Attestation I have personally seen and examined this patient.: Yes I have fully participated in the care of the patient.: Yes I have reviewed all pertinent clinical information, including history, physical exam and plan: Yes
[2017-08-12] MEDS: metroNIDAZOLE IV 500 mg/100 ml 500 MG/100 ML BAG IVPB SCH ×2 (15:29→21:29)
--- NOTE | 2017-08-12 15:47 | PN ---
DATE: 08/12/2017 SUBJECTIVE: The patient is requested to be seen by Dr. Nicole Charlton. The patient was transferred from the hospitalist service to my service today. The patient was admitted by the hospitalist service on August 11. The patient's ER visits, triage notes, ER physical evaluation and history obtained through the patient's . According to the patient's the patient has developed midabdominal and lower abdominal pain for 4 days. According to the patient's , the patient was in her usual state of health till 4 days ago. The patient was seen at the [facility] according to the patient's and was discharged. The patient came to the emergency room at [place]. According to the ER, the patient was evaluated by the physician business assistant in the emergency room. According to physician business assistant evaluation, the patient presented with intermittent suprapubic pain for 3 to 4 days radiating to the back associated with nausea, vomiting, chills, dysuria. The patient stated in the ER to the PA the patient was seen by PMD for her symptoms initially, who ordered an outpatient ultrasound, but does not know the results. The patient was seen at [facility] earlier on August 11, waited in the ER, but never actually evaluated according to the PA's note and the patient came to [facility] Emergency Room. The patient's past medical history was reviewed. After the patient was transferred to my service, the patient was seen and examined on room 574, bed 1 with the patient's at the bedside. The patient was seen lying in the bed in room 574, bed 1. According to the patient's , the patient is complaining of headache and abdominal pain. PHYSICAL EXAMINATION VITAL SIGNS: T-max 100.4, heart rate 78, 83, 94, blood pressure ranging from 93, 62, 140, 146, 55, respirations 16 to 18, O2 sat 95% to 96%. GENERAL: The patient is seen lying in the bed. HEENT: Head examination normocephalic and atraumatic. HEENT examination shows dry oral mucosa, pink conjunctivae. Anicteric sclerae. No oropharyngeal lesion. No neck rigidity. ABDOMEN: Soft. Positive periumbilical tenderness, positive left lower quadrant tenderness. Positive guarding. Positive rebound tenderness in right and left lower quadrants, suprapubic area. EXTREMITIES: Extremities shows no pitting edema. No calf tenderness. No Viral's signs. MUSCULOSKELETAL: Examination shows a body mass index of 32. NEUROLOGIC: The patient is alert, awake, responsive, follows simple commands. DIAGNOSTICS: WBC count is 17,000 and 18.6, granulocytes 85% and 83%. Chemistry is significant for glucose of 134, 138, and potassium of 3.5. Total bili is 1.4. Urine, trace protein, few bacteria. The patient's CAT scan, which was done in the emergency room with IV contrast was reviewed. Chest x-ray results were reviewed. EKG shows sinus rhythm, age-indeterminate inferior infarct. IMPRESSION AND PLAN: 1. Lower abdominal pain. 2. Right pelvic abscess with air and air fluid level, possibly a sequelae of sigmoid diverticulitis with infiltration of the pelvic fat abutting the abscess, compatible with inflammation. 3. A 5 x 4.5 cm right pelvic abscess centered in the right adnexa, possible right tubo-ovarian abscess, most likely related to prior episode of sigmoid diverticulitis. 4. Leukocytosis with granulocytosis. 5. Sepsis with pelvic abscess. 6. Fever. 7. Tachycardia. 8. Transient hypotension. 9. History of diabetes mellitus, hypothyroidism, hypertension. 10. Trace proteinuria. 11. Hypokalemia, hyperglycemia. 12. Elevated body mass of 32. 13. Hiatal hernia. 14. Hepatic steatosis. 15. Right pelvic abscess with infiltration of the pelvic fat, abutting the abscess compatible with inflammation with a small amount of nearby fluid in the right pelvic retroperitoneum, small in space, and diffuse pelvic free fluid. 16. Age-indeterminate inferior infarct on EKG. PLAN: At this time, the patient was admitted as mentioned by the hospital service. The patient was seen by the assistant to the president. Their recommendation was to keep n.p.o., IV antibiotic, IV fluid, pain management, and interventional radiology evaluation. The patient at present is now seen in room 574, bed 1. The patient will be ordered to continue IV, parenteral analgesics will be ordered. The patient has been ordered IV fluid, the patient has been ordered serial labs, lactic acid. The patient has been ordered procalcitonin level, serial labs. Blood cultures, urine cultures have been ordered. Current consultation with gastroenterology, infectious disease, interventional radiology, and locomotive operator. The patient is currently on Dilaudid 0.5 mg IV q. 4 p.r.n.. The patient is on Flagyl 500 IV q. 8, low-dose sliding scale coverage. The patient's potassium will be supplemented, the patient's IV fluid will be continued at 125 cc an hour, Protonix 40 IV daily. The patient is on Tylenol p.r.n., Zofran 4 IV q. 4. The patient will be continued on IV antibiotics. The patient's further management will be dependent upon the patient's clinical condition, hemodynamic status as per gastroenterology, infectious disease recommendation, TRACK REPAIRER HELPER, surgery, and interventional radiology. The patient's condition, diagnosis, treatment plan, management plan, need for further diagnostic, therapeutic interventions have been explained to the patient and the patient's , who is present at the bedside. Apparently, the patient's stated that he has been a physician in [place]. I have explained to the patient's in layman's language and also in medical terminology about the patient's condition, diagnosis, need for further diagnostic therapeutic intervention, and possibilities of surgical intervention was also explained to the patient depending upon the patient's clinical condition. At present, the patient's management will be as per the orders, which are in the computer and [employer]. Dictated and electronically signed, not read. Rusty Estevez MD
[2017-08-12] MEDS: HYDROmorphone 0.5 mg/0.5 ml ISec IVP PRN (16:58)
--- NOTE | 2017-08-12 19:13 | CON ---
DATE: 08/12/2017 GASTROENTEROLOGY CONSULTATION REQUESTING PHYSICIAN: Dr. Estevez. REASON FOR CONSULTATION: I have been asked to see this 62-year-old Malt[place] female who comes to the hospital with a 1-week history of worsening right lower quadrant abdominal pain associated with chills. Pain has become increasingly worse over the last several days and the patient also had some nausea and vomiting several days ago. CT scan of the abdomen performed in the emergency room showed a ovoid 4.5 cm mass with a air-fluid with a thick rim in the right pelvis with associated infiltration of the mesentery between the sigmoid colon and this ovoid mass with thickening of the sigmoid colon all suggestive of a right pelvic abscess. The patient apparently has had episodes of left lower quadrant abdominal pain in the past in her [place] in [place] and then was apparently recommended to have a colonoscopy which she never had. The patient also has a history of hypothyroidism and diabetes mellitus. Routine blood work shows elevated white blood cell count of 17,000. The patient also underwent a transvaginal ultrasound which showed a thickened endometrium measuring 9 mm as well as a myoma of the uterus and a mass seen on CT scan in the right adnexa. PAST MEDICAL HISTORY: Notable for hypothyroidism and diabetes mellitus. PAST SURGICAL HISTORY: None. SOCIAL HISTORY: She denies cigarette smoking, alcohol use. FAMILY HISTORY: Noncontributory. REVIEW OF SYSTEMS: A 14-point review of systems is notable for right lower quadrant, right pelvic and back pain, nausea, vomiting, fever. PHYSICAL EXAMINATION: GENERAL: Middle-aged female lying in bed, in no acute distress. VITAL SIGNS: Reveal temperature of 98.4, blood pressure 93/60, heart rate of 88. HEENT: Reveal sclerae to be white. Conjunctivae pink. NECK: Supple. CHEST: Reveal lungs to be clear. HEART: Reveals a regular rate and rhythm. ABDOMEN: Soft. There is right pelvic tenderness to deep palpation with some voluntary guarding. There is no rebound. EXTREMITIES: Show no edema. LABORATORY DATA: Revealed white blood cell count 18.6, hemoglobin 11.6. Chemistries reveal a potassium of 3.5, total bilirubin of 1.4. AST, ALT, alk phos were all normal. IMPRESSION: A 62-year-old female from [place] with a 1-week history of right pelvic pain with a CT scan of the abdomen and pelvis suggesting a large right pelvic abscess most likely from a perforated diverticulitis another possibility is a tubo ovarian abscess. RECOMMENDATIONS: 1. Interventional radiology for percutaneous drainage of the right pelvic abscess. 2. Surgical evaluation for possible elective sigmoid resection. 3. Continue IV antibiotics. 4. Keep n.p.o. for now. Carlos Ba MD
[2017-08-13] MEDS: Meropenem 1g/NS 100mL IVPB 1 GM/100 ML PIGGYBACK IVPB SCH ×3 (05:13→23:22)
[2017-08-13] MEDS: metroNIDAZOLE IV 500 mg/100 ml 500 MG/100 ML BAG IVPB SCH ×3 (05:33→21:56)
[2017-08-13 07:42] LABS: BASO # 0.02 K/mm3 (0.0-2.0); BASO % 0.1 % (0.0-3.0); EOS % 0.1 % (1.5-5.0); GRAN # 14.84 (1.4-6.5); GRAN % 84.3 % (50.0-68.0); LYMPH # 1.9 (1.2-3.4); LYMPH % 10.7 % (22.0-35.0); MEAN CORPUSCULAR HGB CONC 32.6 g/dl (31.0-37.0); MEAN PLATELET VOLUME 10.8 fl (7.0-11.0); MONO # 0.8 (0.1-0.6); MONO % 4.8 % (1.0-6.0); RED CELL DISTRIBUTION WIDTH 14.3 % (11.5-14.5); WHITE BLOOD COUNT 17.6 10^3/ul (4.5-11.0)
[2017-08-13 07:51] LABS: ALKALINE PHOSPHATASE 66 U/L (38-126); ALT/SGPT 28 U/L (7-56); AST/SGOT 25 U/L (14-36); BILIRUBIN,TOTAL 1.2 mg/dL (0.2-1.3); BLOOD UREA NITROGEN 11 mg/dL (7-21); CALCIUM 8.3 mg/dL (8.4-10.5); CARBON DIOXIDE 29 mmol/L (21-33); CHLORIDE 102 mmol/L (95-110); GFR AFRICAN-AMERICAN > 60; GLUCOSE,RANDOM 106 mg/dL (70-110); MAGNESIUM 1.8 mg/dL (1.7-2.2); PHOSPHOROUS 2.9 mg/dL (2.5-4.5); POTASSIUM 3.5 mmol/L (3.6-5.0); SODIUM 139 mmol/L (132-148); TOTAL PROTEIN 6.1 g/dL (5.8-8.3)
--- NOTE | 2017-08-13 08:25 | CP.PCM.PN ---
<Raoul Eugene - Last Filed: 08/13/17 08:21> Subjective - Date & Time of Evaluation Date of Evaluation: 08/13/17 Time of Evaluation: 08:22 - Subjective Subjective: PGY1 Note for Dr. Singh HPI: Patient seen and examined at bedside. Doing well with no complaints at this time. +flatus, +BM. Denies N/V/D/F/chest pain, SOB. Objective - Vital Signs/Intake and Output Vital Signs (last 24 hours): Temp Pulse Resp BP Pulse Ox 101.9 F H 80 16 93/60 L 95 08/12/17 18:45 08/12/17 08:15 08/12/17 08:15 08/12/17 08:15 08/12/17 08:15 Intake and Output: 08/13/17 08/13/17 06:59 18:59 Intake Total 0 Balance 0 - Medications Medications: Current Medications Acetaminophen (Tylenol 325mg Tab) 650 mg PO Q6H PRN PRN Reason: Fever >100.4 F Last Admin: 08/13/17 01:47 Dose: 650 mg Acetaminophen (Tylenol 325mg Tab) 650 mg PO Q6H PRN PRN Reason: Pain, moderate (4-7) Hydromorphone HCl (Dilaudid) 0.5 mg IVP Q4H PRN PRN Reason: Pain, severe (8-10) Last Admin: 08/12/17 16:58 Dose: 0.5 mg Lactated Ringer's (Lactated Ringer's) 1,000 mls @ 125 mls/hr IV .Q8H ANA MARIA Last Admin: 08/12/17 21:37 Dose: 125 mls/hr Metronidazole (Flagyl) 500 mg in 100 mls @ 100 mls/hr IVPB Q8 ANA MARIA PRN Reason: Protocol Last Admin: 08/13/17 05:33 Dose: 100 mls/hr Meropenem 1g/NS 100mL IVPB (Meropenem 1g/Ns 100ml Ivpb) 1 gm in 100 mls @ 100 mls/hr IVPB Q8 ANA MARIA PRN Reason: Protocol Last Admin: 08/13/17 05:13 Dose: 100 mls/hr Potassium Chloride (Potassium Chloride 20 Meq/100 Ml) 20 meq in 100 mls @ 50 mls/hr IVPB Q2H ANA MARIA Stop: 08/13/17 12:29 Insulin Human Regular (Humulin R Low) 0 units SC ACHS ANA MARIA PRN Reason: Protocol Last Admin: 08/12/17 21:39 Dose: Not Given Ondansetron HCl (Zofran Inj) 4 mg IVP Q4H PRN PRN Reason: Nausea/Vomiting Pantoprazole Sodium (Protonix Inj) 40 mg IVP DAILY [facility] Last Admin: 08/12/17 10:28 Dose: 40 mg - Labs Labs: 08/13/17 07:33 08/13/17 07:33 - Constitutional Appears: Well, Non-toxic, No Acute Distress - Head Exam Head Exam: ATRAUMATIC, NORMAL INSPECTION, NORMOCEPHALIC - Eye Exam Eye Exam: EOMI Pupil Exam: NORMAL ACCOMODATION - ENT Exam ENT Exam: Mucous Membranes Moist - Neck Exam Neck Exam: Full ROM - Respiratory Exam Respiratory Exam: Clear to Ausculation Bilateral, NORMAL BREATHING PATTERN - Cardiovascular Exam Cardiovascular Exam: REGULAR RHYTHM - GI/Abdominal Exam GI & Abdominal Exam: Soft, Tenderness (mild, RLQ/LLQ), Normal Bowel Sounds. absent: Distended - Extremities Exam Extremities Exam: absent: Joint Swelling, Tenderness - Back Exam Back Exam: absent: CVA tenderness (L), CVA tenderness (R) - Neurological Exam Neurological Exam: Alert, Awake, Oriented x3 - Psychiatric Exam Psychiatric exam: Normal Affect, Normal Mood - Skin Skin Exam: Dry, Intact, Normal Color, Warm Assessment and Plan - Assessment and Plan (Free Text) Assessment: 62F w/pelvic abscess * NPO * Flagyl 500mg IV Q8 * Merem 1g IV Q8 * Zofran * LR@125 * Pain control * IR drainage today Raoul Eugene DO PGY1 <Jonas Singh - Last Filed: 08/17/17 21:15> Objective - Vital Signs/Intake and Output Vital Signs (last 24 hours): Temp Pulse Resp BP Pulse Ox 97.9 F 73 18 136/76 96 08/16/17 08:00 08/16/17 08:00 08/16/17 08:00 08/16/17 08:00 08/16/17 08:00 - Labs Labs: 08/16/17 05:30 08/16/17 05:30 Attending/Attestation - Attestation I have personally seen and examined this patient.: Yes I have fully participated in the care of the patient.: Yes I have reviewed all pertinent clinical information, including history, physical exam and plan: Yes Notes (Text): 08/17/17 21:15 Pt was seen and examined at bedside Agree with above note and assessment Pt with Sigmoid diverticulitis and pelvic abscess Awaiting IR Drainage C.w IV antibiotics NPO Plan d.w pt in detail.
[2017-08-13] MEDS: Insulin Reg-LOW-Coverage SC SCH ×4 (10:50→22:00)
--- NOTE | 2017-08-13 10:57 | CP.PCM.PN ---
<JESSICALENO - Last Filed: 08/13/17 12:03> Subjective - Date & Time of Evaluation Date of Evaluation: 08/13/17 Time of Evaluation: 10:48 - Subjective Subjective: Medicine Progress Note for Dr. Estevez: Pt seen and examined at bedside. Pt denied any acute overnight events. Pt c/o b/ l LQ abdominal pain that radiates to back, however pain is decreased from yesterday. Pt states that fever, chills, nausea, and vomiting have improved. Pt denies CP, SOB, constipation, diarrhea, BRBPR, melena, hematuria, dysuria. Objective - Vital Signs/Intake and Output Vital Signs (last 24 hours): Temp Pulse Resp BP Pulse Ox 98.6 F 86 20 91/55 L 97 08/13/17 08:00 08/13/17 08:00 08/13/17 08:00 08/13/17 08:00 08/13/17 08:00 Intake and Output: 08/13/17 08/13/17 06:59 18:59 Intake Total 1200 Balance 1200 - Medications Medications: Current Medications Acetaminophen (Tylenol 325mg Tab) 650 mg PO Q6H PRN PRN Reason: Fever >100.4 F Last Admin: 08/13/17 01:47 Dose: 650 mg Acetaminophen (Tylenol 325mg Tab) 650 mg PO Q6H PRN PRN Reason: Pain, moderate (4-7) Hydromorphone HCl (Dilaudid) 0.5 mg IVP Q4H PRN PRN Reason: Pain, severe (8-10) Last Admin: 08/12/17 16:58 Dose: 0.5 mg Lactated Ringer's (Lactated Ringer's) 1,000 mls @ 125 mls/hr IV .Q8H ANA MARIA Last Admin: 08/12/17 21:37 Dose: 125 mls/hr Metronidazole (Flagyl) 500 mg in 100 mls @ 100 mls/hr IVPB Q8 ANA MARIA PRN Reason: Protocol Last Admin: 08/13/17 05:33 Dose: 100 mls/hr Meropenem 1g/NS 100mL IVPB (Meropenem 1g/Ns 100ml Ivpb) 1 gm in 100 mls @ 100 mls/hr IVPB Q8 ANA MARIA PRN Reason: Protocol Last Admin: 08/13/17 05:13 Dose: 100 mls/hr Potassium Chloride (Potassium Chloride 20 Meq/100 Ml) 20 meq in 100 mls @ 50 mls/hr IVPB Q2H [facility] Stop: 08/13/17 12:29 Insulin Human Regular (Humulin R Low) 0 units SC ACHS ANA MARIA PRN Reason: Protocol Last Admin: 08/12/17 21:39 Dose: Not Given Ondansetron HCl (Zofran Inj) 4 mg IVP Q4H PRN PRN Reason: Nausea/Vomiting Pantoprazole Sodium (Protonix Inj) 40 mg IVP DAILY [facility] Last Admin: 08/12/17 10:28 Dose: 40 mg - Labs Labs: 08/13/17 07:33 08/13/17 07:33 - Constitutional Appears: No Acute Distress - Head Exam Head Exam: ATRAUMATIC, NORMOCEPHALIC - Eye Exam Eye Exam: EOMI, PERRL - ENT Exam ENT Exam: Mucous Membranes Moist - Neck Exam Neck Exam: Full ROM. absent: Lymphadenopathy, Tenderness, Thyromegaly - Respiratory Exam Respiratory Exam: Clear to Ausculation Bilateral. absent: Rales, Rhonchi, Wheezes - Cardiovascular Exam Cardiovascular Exam: RRR. absent: Gallop, Rubs, Murmur - GI/Abdominal Exam GI & Abdominal Exam: Distended (Minor), Guarding, Soft, Tenderness (LLQ), Rebound (LLQ). absent: Mass, Organomegaly, Pulsatile Mass - Extremities Exam Extremities Exam: Normal Inspection - Back Exam Back Exam: NORMAL INSPECTION - Neurological Exam Neurological Exam: Alert, Awake, Oriented x3 - Psychiatric Exam Psychiatric exam: Normal Affect, Normal Mood - Skin Skin Exam: Dry, Intact, Normal Color, Warm Assessment and Plan - Assessment and Plan (Free Text) Assessment: 62 F with PMHx of Sigmoid Diverticulitis admitted for evaluation and treatment for pelvic abscess. Plan: 1. Pelvic Abscess - Transvaginal US showed 1.9 cm posterior intramural uterine fibroid, thickened endometrium 9 mm, complex right adnexal mass 4 cm - Abd/Pelvic CT showed highly suspicious for 5x4.5 cm right plevic abscess, cannot exclude right tubo-ovarian abscess - Pelvic/abd US from 08/08 showed hepatomegaly otherwise negative - IR Consulted - ID Consulted Merrem 1g IVPB Q8H - GI Consulted Right pelvic abscess most likely from perforated diverticulitis or tuboovarian abscess - Surgery Consulted No surgical intervention at this time, cont IV abx, f/u with IR for drainage - Insurance Auditor Consulted - Lactate WNL - F/U procal, chlaymydia/GC RNA, blood/urine cultures - NPO - LR at 125 ml/hr - Tylenol for mild pain - Dilaudid 0.5 q4h for sever pain - Zofran for nausea - Incentive spirometry to avoid atelectasis 2. Hypokalemia - K 3.5 - Repleted with KCl 20 meq IVPB q2h x2 - Monitor and replete as needed 3. H/O DM - Low Dose SS - FS ACHS - F/U HA1C 4. H/O HTN - Hold Atenolol pending surg 5. H/O Hypothyroid - Started Synthroid 25 mcg IVP daily - TSH, Free T4 WNL GI/DVT PPx - Protonix/SCDs Pt seen and discussed in detail with Dr. Estevez. Tee Adrian, PGY1 <Rusty Estevez U - Last Filed: 08/16/17 21:54> Objective - Vital Signs/Intake and Output Vital Signs (last 24 hours): Temp Pulse Resp BP Pulse Ox 97.9 F 73 18 136/76 96 08/16/17 08:00 08/16/17 08:00 08/16/17 08:00 08/16/17 08:00 08/16/17 08:00 Intake and Output: 08/16/17 08/17/17 18:59 06:59 Intake Total 480 Balance 480 - Labs Labs: 08/16/17 05:30 08/16/17 05:30 Attending/Attestation - Attestation I have personally seen and examined this patient.: Yes I have fully participated in the care of the patient.: Yes I have reviewed all pertinent clinical information, including history, physical exam and plan: Yes
--- NOTE | 2017-08-13 10:59 | CP.PCM.CON ---
History of Present Illness - History of Present Illness History of Present Illness: 62 year old female with PMH of diverticulitis, HTN, DM, dyslipidemia, obesity with BMI 32 came in to [facility] complaining of sharp right lower quadrant pain and right side of her back associated with nausea. She does not have vomiting, no diarrhea, has some suprapubic pain but no dysuria. She had subjective fevers and chills as well, generalized weakness. This started about 2 -3 days. She denies eating anything out of the ordinary. She denies headache or dizziness, no chest pain, no SOB, no dysphagia. CT scan of the abdomen and pelvis revealed pelvis mass on the right which is probably fluid. Infectious Diseases consult is requested to further evaluate and manage. Review of Systems - Review of Systems All systems: reviewed and no additional remarkable complaints except (as per HPI ) Past Patient History - Infectious Disease Hx of Infectious Diseases: None - Past Social History Smoking Status: Never Smoked - CARDIAC Hx Cardiac Disorders: Yes Hx Hypertension: Yes - PULMONARY Hx Respiratory Disorders: No - NEUROLOGICAL Hx Neurological Disorder: No - HEENT Hx HEENT Problems: Yes (uses glasses) - RENAL Hx Chronic Kidney Disease: No - ENDOCRINE/METABOLIC Hx Endocrine Disorders: Yes Hx Diabetes Mellitus Type 2: Yes Hx Hypothyroidism: Yes - HEMATOLOGICAL/ONCOLOGICAL Hx Blood Disorders: No - INTEGUMENTARY Hx Dermatological Problems: No - MUSCULOSKELETAL/RHEUMATOLOGICAL Hx Falls: No - GASTROINTESTINAL Hx Gastrointestinal Disorders: No - GENITOURINARY/GYNECOLOGICAL Hx Genitourinary Disorders: No - PSYCHIATRIC Hx Psychophysiologic Disorder: No Hx Substance Use: No - SURGICAL HISTORY Hx Surgeries: No - ANESTHESIA Hx Anesthesia: No Meds Allergies/Adverse Reactions: Allergies Allergy/AdvReac Type Severity Reaction Status Date / Time No Known Allergies Allergy Verified 08/11/17 21:48 - Medications Medications: Current Medications Acetaminophen (Tylenol 325mg Tab) 650 mg PO Q6H PRN PRN Reason: Fever >100.4 F Acetaminophen (Tylenol 325mg Tab) 650 mg PO Q6H PRN PRN Reason: Pain, moderate (4-7) Hydromorphone HCl (Dilaudid) 0.5 mg IVP Q4H PRN PRN Reason: Pain, severe (8-10) Last Admin: 08/12/17 10:53 Dose: 0.5 mg Lactated Ringer's (Lactated Ringer's) 1,000 mls @ 125 mls/hr IV .Q8H COUNTS INCLUDE 234 BEDS AT THE [facility] Last Admin: 08/12/17 07:19 Dose: 125 mls/hr Metronidazole (Flagyl) 500 mg in 100 mls @ 100 mls/hr IVPB Q8 ANA MARIA PRN Reason: Protocol Potassium Chloride (Potassium Chloride 10 Meq/100 Ml) 10 meq in 100 mls @ 100 mls/hr IVPB ONCE ONE Stop: 08/12/17 12:01 Vancomycin HCl (Vancomycin 1gm) 1 gm in 250 mls @ 167 mls/hr IVPB STAT STA PRN Reason: Protocol Stop: 08/12/17 12:28 Meropenem 1g/NS 100mL IVPB (Meropenem 1g/Ns 100ml Ivpb) 100 mls @ 100 mls/hr IVPB Q8 ANA MARIA PRN Reason: Protocol Stop: 08/19/17 14:01 Insulin Human Regular (Humulin R Low) 0 units SC ACHS ANA MARIA PRN Reason: Protocol Last Admin: 08/12/17 08:43 Dose: 1 units Ondansetron HCl (Zofran Inj) 4 mg IVP Q4H PRN PRN Reason: Nausea/Vomiting Pantoprazole Sodium (Protonix Inj) 40 mg IVP DAILY COUNTS INCLUDE 234 BEDS AT THE [facility] Last Admin: 08/12/17 10:28 Dose: 40 mg Physical Exam - Constitutional Appears: Non-toxic, No Acute Distress - Head Exam Head Exam: NORMAL INSPECTION - Neck Exam Neck exam: Negative for: Lymphadenopathy, Meningismus - Respiratory Exam Respiratory Exam: Decreased Breath Sounds - Cardiovascular Exam Cardiovascular Exam: +S1, +S2 - GI/Abdominal Exam GI & Abdominal Exam: Soft, Tenderness (right lower quadrant). absent: Distended , Firm, Guarding, Rebound, Rigid Results - Vital Signs Recent Vital Signs: Last Vital Signs Temp 98.4 F 08/12/17 08:15 Pulse 80 08/12/17 08:15 Resp 16 08/12/17 08:15 BP 93/60 L 08/12/17 08:15 Pulse Ox 95 08/12/17 08:15 - Labs Result Diagrams: 08/13/17 07:33 08/13/17 07:33 Labs: Laboratory Results - last 24 hr 08/12/17 08/12/17 08:12 08:12 WBC 18.6 H RBC 4.13 Hgb 11.6 L Hct 35.5 L MCV 86.0 MCH 28.1 MCHC 32.7 RDW 14.2 Plt Count 189 MPV 10.4 Gran % 83.3 H Lymph % (Auto) 10.2 L Fleming % (Auto) 6.4 H Eos % (Auto) 0.0 L Baso % (Auto) 0.1 Gran # 15.51 H Lymph # 1.9 Fleming # 1.2 H Eos # 0.0 Baso # 0.02 Sodium 142 Potassium 3.5 L Chloride 102 Carbon Dioxide 31 Anion Gap 13 BUN 12 Creatinine 0.7 Est GFR ( Amer) > 60 Est GFR (Non-Af Amer) > 60 Random Glucose 134 H Calcium 8.5 Phosphorus 3.7 Magnesium 1.8 Total Bilirubin 1.4 H AST 18 ALT 28 Alkaline Phosphatase 58 Total Protein 6.4 Albumin 3.3 Globulin 3.1 Albumin/Globulin Ratio 1.0 L Assessment & Plan - Assessment and Plan (Free Text) Plan: Assessment Sepsis due to probable right sided pelvic abscess (tubo-ovarian or GI in origin) history of diverticulitis HTN DM dyslipidemia obesity with BMI 32 Plan Started patient on Merrem (Day 2 today); follow up results of the IR-guided drainage today will monitor clinically
[2017-08-13] MEDS: Lactated Ringer's 1,000 ML IV SCH ×3 (11:07→21:00)
[2017-08-13] MEDS: HYDROmorphone 0.5 mg/0.5 ml ISec IVP PRN (11:08)
--- NOTE | 2017-08-13 11:11 | PN ---
DATE: 08/13/2017 SUBJECTIVE: The patient is seen walking around in her room. Her abdominal pain is less. She denies any fevers or chills. OBJECTIVE: VITAL SIGNS: Reveal temperature of 98.6, blood pressure 91/55, heart rate of 86. HEENT: Reveals sclerae to be white. Conjunctivae pink. NECK: Supple. CHEST: Reveals lungs to be clear. HEART: Exam reveals regular rate and rhythm. ABDOMEN: Obese, soft, less right lower quadrant tenderness. No rebound. No guarding. EXTREMITIES: Show no edema. LABORATORY DATA: Reveal hemoglobin 11.4, white blood cell count 17.6. AST, ALT, alk phos were all normal. IMPRESSION: A 62-year-old female admitted to the hospital with right lower quadrant pain, found to have a large, 5 x 4.5 cm fluid-filled mass, suggestive of a right pelvic abscess, most likely originating from an area of sigmoid diverticulitis. RECOMMENDATIONS: 1. Awaiting interventional radiology evaluation for percutaneous drainage of right pelvic abscess. 2. Continue IV antibiotics. 3. Would keep n.p.o. for now. Carlos Ba MD
--- NOTE | 2017-08-13 19:21 | PN ---
DATE: 08/13/2017 TIME: 7 p.m. I reviewed the patient's imaging. There is a 3.5 cm air-fluid level in the right adnexa adjacent to the sigmoid colon. It is uncertain whether this represents primary adnexal pathology or possible diverticulitis with involvement of the right ovary. The transvaginal ultrasound is not particularly helpful in this respect. Regardless, the small abscess is not amenable to percutaneous drainage. Recommendations would be conservative management with halfway antibiotics or possibly intervention laparoscopically by general surgery and/or EDUCATION REVIEWER. Vamsi Painter MD MTDD
--- NOTE | 2017-08-14 03:12 | PN ---
DATE: 08/13/2017 LOCATION: The patient is seen lying in the bed in room 574, bed 1. SUBJECTIVE: The patient's overnight nurse's notes were reviewed. The patient slept without any adverse event with the patient's family was at the bedside today. The patient was seen by Erlinda Kim clinical educator, overnight nurse's notes were reviewed. The patient was ambulatory in the room. OBJECTIVE: VITAL SIGNS: T-max 101.9, heart rate 86-97, blood pressure is 100/62, 93/60, 125/74, respirations 20, and O2 saturation 97-99%. HEAD: Head examination, normocephalic, atraumatic. HEENT: Shows pink conjunctivae. Anicteric sclerae, dry oral mucosa. NECK: No neck rigidity. CHEST: Kyphosis. LUNGS: Shows no rales, crackles or wheezing. CARDIOVASCULAR: S1 and S2, regular rhythm. ABDOMEN: Soft with positive suprapubic right and left lower quadrant tenderness. Positive guarding positive questionable rebound tenderness. NEUROLOGIC: Cranial nerves II-XII intact. Gait examination is not tested. MUSCULOSKELETAL: Shows a body mass index of 35. DIAGNOSTIC STUDIES: WBC is 17.6, hemoglobin/hematocrit 11.4/35, and platelet 178, granulocytes 84.3. Sodium is 139, potassium 3.5, chloride 102, CO2 29, anion gap of 12, BUN 11, creatinine 0.7, GFR greater than 60, glucose 106, hemoglobin A1c 7.3, lactic acid 0.8, calcium 8.3, phosphorus 2.9, and magnesium 1.8. LFTs are normal. Procalcitonin level is negative. TSH is 2.35. Total T4 is 6.1, free T4 1.1. Urine, trace protein, few bacteria. Blood cultures are growing Gram-positive cocci in chains, Transvaginal ultrasound results are available, which shows 9 mm endometrial thickening abnormal for a postmenopausal woman, right adnexal mass, unclear if the collection corresponds to fluid and gas seen on the CT examination on the same date, nonvisualized left ovary. The patient's chest x-ray, no active disease. EKG sinus rhythm. IMPRESSION: 1. Transient hypotension. 2. Leukocytosis with granulocytosis. 3. Mild normocytic anemia. 4. Hypokalemia. 5. Noninsulin-requiring diabetes mellitus with hemoglobin A1c of 7.3. 6. History of hypothyroidism. 7. Trace proteinuria and bacteriuria. 8. Gram-positive cocci in chains bacteremia. 9. A 9 mm endometrial thickening in postmenopausal woman, etiology undetermined. 10. Complex right adnexal mass. 11. Nonvisualized left ovary. 12. Posterior intramural uterine fibroid. 13. Sepsis secondary to right-sided pelvic abscess, tubo-ovarian versus perforated diverticulitis. 14. Right pelvic abscess originating from area of sigmoid diverticulitis. 15. Large right-sided pelvic abscess with pelvic pain, most likely secondary to perforated sigmoid diverticulitis versus tubo-ovarian abscess. 16. History of diabetes mellitus, hypertension, hypothyroidism. PLAN: At this time, the patient seen by interventional radiologist, recommends conservative treatment versus laparoscopic surgical intervention versus long-term IV antibiotics. The patient has been ordered repeat labs. Repeat blood cultures ordered. Current consultations, Gastroenterology, Infectious Disease, Intervention Radiology, ASSISTANT DRAFTER, and Surgery. CURRENT MEDICATIONS: Dilaudid 0.5 mg IV q.4 hours p.r.n., Flagyl 500 IV q.8 hours, regular insulin low-dose sliding scale coverage, Ringer's lactate 125 mL an hour, and meropenem 1 g IV q.8 hours, and Protonix 40 mg IV daily. The patient was started on Synthroid 25 mcg IV daily, Tylenol p.r.n., and vancomycin was given in the emergency room, Zofran 4 mg IV q.4 h ours, and Zosyn was given at the time of admission. The patient is on incentive spirometry, n.p.o., fingerstick blood sugar, out of bed, HECTOR stockings, and SCDs. The patient's family including the patient's son and the family member has been explained about the patient's condition, diagnoses, and need for further diagnostic therapeutic intervention. It was explained to the patient, the patient's family, and the son present at the bedside. All of the above was explained to the patient and the family in layman's language. All questions concerned answered. Dictated and electronically signed, not read. Rusty Estevez MD
[2017-08-14] MEDS: metroNIDAZOLE IV 500 mg/100 ml 500 MG/100 ML BAG IVPB SCH (05:31)
[2017-08-14] MEDS: Meropenem 1g/NS 100mL IVPB 1 GM/100 ML PIGGYBACK IVPB SCH ×3 (06:50→21:36)
[2017-08-14] MEDS: Insulin Reg-LOW-Coverage SC SCH ×4 (07:30→21:42)
[2017-08-14 08:06] LABS: BASO # 0.03 K/mm3 (0.0-2.0); BASO % 0.2 % (0.0-3.0); EOS # 0.1 (0.0-0.7); EOS % 0.5 % (1.5-5.0); GRAN % 80.9 % (50.0-68.0); HEMATOCRIT 35.4 % (36.0-48.0); LYMPH # 1.9 (1.2-3.4); LYMPH % 12.7 % (22.0-35.0); MEAN CELL VOLUME 84.9 fl (80.0-105.0); MEAN CORPUSCULAR HEMOGLOBIN 28.1 pg (25.0-35.0); MEAN CORPUSCULAR HGB CONC 33.1 g/dl (31.0-37.0); MEAN PLATELET VOLUME 10.7 fl (7.0-11.0); MONO # 0.8 (0.1-0.6); MONO % 5.7 % (1.0-6.0); RED CELL DISTRIBUTION WIDTH 14.4 % (11.5-14.5); WHITE BLOOD COUNT 14.8 10^3/ul (4.5-11.0)
[2017-08-14 08:20] LABS: ALKALINE PHOSPHATASE 71 U/L (38-126); ALT/SGPT 26 U/L (7-56); AST/SGOT 19 U/L (14-36); BLOOD UREA NITROGEN 7 mg/dL (7-21); CALCIUM 8.3 mg/dL (8.4-10.5); CARBON DIOXIDE 25 mmol/L (21-33); CHLORIDE 103 mmol/L (95-110); GFR AFRICAN-AMERICAN > 60; GLUCOSE,RANDOM 99 mg/dL (70-110); MAGNESIUM 1.7 mg/dL (1.7-2.2); PHOSPHOROUS 1.7 mg/dL (2.5-4.5); POTASSIUM 3.4 mmol/L (3.6-5.0); SODIUM 140 mmol/L (132-148); TOTAL PROTEIN 6.5 g/dL (5.8-8.3)
[2017-08-14] MEDS ORDERED: Potassium Chloride 20 mEq ER Tab PO ONE (09:49)
[2017-08-14] MEDS: Levothyroxine 100 mcg (0.1 mg) Inj IVP SCH (10:56)
[2017-08-14] MEDS ORDERED: Potassium Phosphate 15 MMOLE in Sodium Chloride 0.9% 250 ML IVPB ONE (11:40)
[2017-08-14] MEDS ORDERED: Magnesium Sulfate 2 GM in Sodium Chloride 0.9% 100 ML IVPB ONE (11:41)
--- NOTE | 2017-08-14 11:51 | CP.PCM.PN ---
<Raoul Eugene - Last Filed: 08/14/17 16:36> Subjective - Date & Time of Evaluation Date of Evaluation: 08/14/17 Time of Evaluation: 11:48 - Subjective Subjective: PGY1 Note for Dr. Singh HPI: Patient seen and examined at bedside today. Doing well. Still complaining of mild lower abdominal pain but states it has gotten better. No other complaints at this time. Explained to patient that IR said the abscess is too small to drain so we will continue to treat with antibiotics. Patient seemed she did not understand the majority of our questions due to the language barrier so we will speak with family today. Objective - Vital Signs/Intake and Output Vital Signs (last 24 hours): Temp Pulse Resp BP Pulse Ox 98.8 F 82 18 141/79 98 08/14/17 08:33 08/14/17 08:33 08/14/17 08:33 08/14/17 08:33 08/14/17 08:33 Intake and Output: 08/14/17 08/14/17 06:59 18:59 Intake Total 2850 Balance 2850 - Medications Medications: Current Medications Acetaminophen (Tylenol 325mg Tab) 650 mg PO Q6H PRN PRN Reason: Pain, moderate (4-7) Hydromorphone HCl (Dilaudid) 0.5 mg IVP Q4H PRN PRN Reason: Pain, severe (8-10) Last Admin: 08/13/17 11:08 Dose: 0.5 mg Lactated Ringer's (Lactated Ringer's) 1,000 mls @ 125 mls/hr IV .Q8H [facility] Last Admin: 08/13/17 21:00 Dose: 125 mls/hr Meropenem 1g/NS 100mL IVPB (Meropenem 1g/Ns 100ml Ivpb) 1 gm in 100 mls @ 100 mls/hr IVPB Q8 ANA MARIA PRN Reason: Protocol Last Admin: 08/14/17 06:50 Dose: 100 mls/hr Vancomycin HCl (Vancomycin 1gm) 1 gm in 250 mls @ 167 mls/hr IVPB Q12H ANA MARIA PRN Reason: Protocol Potassium Phosphate 15 mmole/ (Sodium Chloride) 255 mls @ 42.5 mls/hr IVPB ONCE ONE Stop: 08/14/17 17:39 Magnesium Sulfate 2 gm/ Sodium (Chloride) 104 mls @ 102 mls/hr IVPB ONCE ONE Stop: 08/14/17 12:42 Insulin Human Regular (Humulin R Low) 0 units SC ACHS ANA MARIA PRN Reason: Protocol Last Admin: 08/13/17 22:00 Dose: Not Given Levothyroxine Sodium (Synthroid) 25 mcg IVP DAILY [facility] Ondansetron HCl (Zofran Inj) 4 mg IVP Q4H PRN PRN Reason: Nausea/Vomiting Pantoprazole Sodium (Protonix Inj) 40 mg IVP DAILY [facility] Last Admin: 08/13/17 11:06 Dose: 40 mg - Labs Labs: 08/14/17 07:45 08/14/17 07:45 - Constitutional Appears: Well, Non-toxic, No Acute Distress - Eye Exam Eye Exam: EOMI Pupil Exam: NORMAL ACCOMODATION - ENT Exam ENT Exam: Mucous Membranes Moist - Respiratory Exam Respiratory Exam: Clear to Ausculation Bilateral, NORMAL BREATHING PATTERN - Cardiovascular Exam Cardiovascular Exam: REGULAR RHYTHM - GI/Abdominal Exam GI & Abdominal Exam: Soft, Tenderness (mild in the LLQ), Normal Bowel Sounds. absent: Distended - Extremities Exam Extremities Exam: absent: Joint Swelling, Tenderness - Back Exam Back Exam: absent: CVA tenderness (L), CVA tenderness (R) - Neurological Exam Neurological Exam: Alert, Awake, Oriented x3 - Psychiatric Exam Psychiatric exam: Normal Affect, Normal Mood - Skin Skin Exam: Dry, Intact, Normal Color, Warm Assessment and Plan - Assessment and Plan (Free Text) Assessment: 62 y/o Female with a Pelvic abscess * IR states abscess is too small to drain * Will continue antibiotic therapy per medicine team * Merem 1g Q8 * Vanco 1g Q12 * Picc line needed for outpatient IV antibiotics * No surgical intervention at this time <Jonas Singh - Last Filed: 08/17/17 21:21> Objective - Vital Signs/Intake and Output Vital Signs (last 24 hours): Temp Pulse Resp BP Pulse Ox 97.9 F 73 18 136/76 96 08/16/17 08:00 08/16/17 08:00 08/16/17 08:00 08/16/17 08:00 08/16/17 08:00 - Labs Labs: 08/16/17 05:30 08/16/17 05:30 Attending/Attestation - Attestation I have personally seen and examined this patient.: Yes I have fully participated in the care of the patient.: Yes I have reviewed all pertinent clinical information, including history, physical exam and plan: Yes Notes (Text): 08/17/17 21:20 Pt was seen and examined at bedside Agree with above note and assessment Pt with Sigmoid diverticulitis and pelvic abscess Pelvic abscess is too small for drainage Pt is improving clinically C.w IV antibiotics Liquid diet Plan d/w primary team Plan d.w pt in detail.
--- NOTE | 2017-08-14 13:07 | CP.PCM.CON ---
History of Present Illness - History of Present Illness History of Present Illness: 62 yo female admitted to [facility] 2 days ago for acute onset suprapubic and RLQ tenderness. Pt with h/o diverticulitis, HTN, DM, hyperlipidemia. Pt was febrile with elevated WBC count. Since in hospital, WBC count trending downward and pt has been afebrile today as of now. Per patient, patient reports pain improving. CT and ultrasound reports 4cm fluid collection, possible abscess. Pt also has a +blood culture. General surgery and ID following. Past Patient History - Infectious Disease Hx of Infectious Diseases: None - Past Social History Smoking Status: Never Smoked - CARDIAC Hx Cardiac Disorders: Yes Hx Hypertension: Yes - PULMONARY Hx Respiratory Disorders: No - NEUROLOGICAL Hx Neurological Disorder: No - HEENT Hx HEENT Problems: Yes (uses glasses) - RENAL Hx Chronic Kidney Disease: No - ENDOCRINE/METABOLIC Hx Endocrine Disorders: Yes Hx Diabetes Mellitus Type 2: Yes Hx Hypothyroidism: Yes - HEMATOLOGICAL/ONCOLOGICAL Hx Blood Disorders: No - INTEGUMENTARY Hx Dermatological Problems: No - MUSCULOSKELETAL/RHEUMATOLOGICAL Hx Falls: No - GASTROINTESTINAL Hx Gastrointestinal Disorders: No - GENITOURINARY/GYNECOLOGICAL Hx Genitourinary Disorders: No - PSYCHIATRIC Hx Psychophysiologic Disorder: No Hx Substance Use: No - SURGICAL HISTORY Hx Surgeries: No - ANESTHESIA Hx Anesthesia: No Meds Allergies/Adverse Reactions: Allergies Allergy/AdvReac Type Severity Reaction Status Date / Time No Known Allergies Allergy Verified 08/11/17 21:48 - Medications Medications: Current Medications Acetaminophen (Tylenol 325mg Tab) 650 mg PO Q6H PRN PRN Reason: Pain, moderate (4-7) Hydromorphone HCl (Dilaudid) 0.5 mg IVP Q4H PRN PRN Reason: Pain, severe (8-10) Last Admin: 08/13/17 11:08 Dose: 0.5 mg Lactated Ringer's (Lactated Ringer's) 1,000 mls @ 125 mls/hr IV .Q8H ANA MARIA Last Admin: 08/13/17 21:00 Dose: 125 mls/hr Meropenem 1g/NS 100mL IVPB (Meropenem 1g/Ns 100ml Ivpb) 1 gm in 100 mls @ 100 mls/hr IVPB Q8 ANA MARIA PRN Reason: Protocol Last Admin: 08/14/17 06:50 Dose: 100 mls/hr Vancomycin HCl (Vancomycin 1gm) 1 gm in 250 mls @ 167 mls/hr IVPB Q12H ANA MARIA PRN Reason: Protocol Potassium Phosphate 15 mmole/ (Sodium Chloride) 255 mls @ 42.5 mls/hr IVPB ONCE ONE Stop: 08/14/17 17:39 Insulin Human Regular (Humulin R Low) 0 units SC ACHS ANA MARIA PRN Reason: Protocol Last Admin: 08/14/17 12:44 Dose: Not Given Levothyroxine Sodium (Synthroid) 25 mcg IVP DAILY [facility] Ondansetron HCl (Zofran Inj) 4 mg IVP Q4H PRN PRN Reason: Nausea/Vomiting Pantoprazole Sodium (Protonix Inj) 40 mg IVP DAILY [facility] Last Admin: 08/13/17 11:06 Dose: 40 mg Physical Exam - Constitutional Appears: Well, No Acute Distress - GI/Abdominal Exam Additional comments: soft/ND/+mild tenderness with deep palpation. No rebound. No gaurding. - Exam Additional comments: Deferred. Results - Vital Signs Recent Vital Signs: Last Vital Signs Temp 98.8 F 08/14/17 08:33 Pulse 82 08/14/17 08:33 Resp 18 08/14/17 08:33 BP 141/79 08/14/17 08:33 Pulse Ox 98 08/14/17 08:33 - Labs Result Diagrams: 08/14/17 07:45 08/14/17 07:45 Labs: Laboratory Results - last 24 hr 08/13/17 08/13/17 08/13/17 07:20 11:17 16:35 WBC RBC Hgb Hct MCV MCH MCHC RDW Plt Count MPV Gran % Lymph % (Auto) [place] % (Auto) Eos % (Auto) Baso % (Auto) Gran # Lymph # [place] # Eos # Baso # Sodium Potassium Chloride Carbon Dioxide Anion Gap BUN Creatinine Est GFR ( Amer) Est GFR (Non-Af Amer) POC Glucose (mg/dL) 106 113 H 110 Random Glucose Calcium Phosphorus Magnesium Total Bilirubin AST ALT Alkaline Phosphatase Total Protein Albumin Globulin Albumin/Globulin Ratio 08/13/17 08/14/17 08/14/17 21:37 07:45 07:45 WBC 14.8 H RBC 4.17 Hgb 11.7 L Hct 35.4 L MCV 84.9 MCH 28.1 MCHC 33.1 RDW 14.4 Plt Count 195 MPV 10.7 Gran % 80.9 H Lymph % (Auto) 12.7 L [place] % (Auto) 5.7 Eos % (Auto) 0.5 L Baso % (Auto) 0.2 Gran # 12.00 H Lymph # 1.9 [place] # 0.8 H Eos # 0.1 Baso # 0.03 Sodium 140 Potassium 3.4 L Chloride 103 Carbon Dioxide 25 Anion Gap 15 BUN 7 Creatinine 0.5 Est GFR ( Amer) > 60 Est GFR (Non-Af Amer) > 60 POC Glucose (mg/dL) 105 Random Glucose 99 Calcium 8.3 L Phosphorus 1.7 L Magnesium 1.7 Total Bilirubin 1.0 AST 19 ALT 26 Alkaline Phosphatase 71 Total Protein 6.5 Albumin 3.3 Globulin 3.2 Albumin/Globulin Ratio 1.0 L Assessment & Plan - Assessment and Plan (Free Text) Assessment: Pelvic fluid collection, likely related to diverticulitis. Unlikely TOA. Pt clinically improving. Plan: Discussed plan with covering resident. Unlikely TERMINAL OPERATIONS SUPERVISOR related. I would recommend continuing current management with general surgery and ID following. Please reconsult if any further questions. - Date & Time Date: 08/14/17 Time: 13:14
[2017-08-14] MEDS: Vancomycin 1gm in NS 250ml 1 GM/250 ML BAG IVPB SCH ×2 (13:58→22:45)
[2017-08-14] MEDS: Lactated Ringer's 1,000 ML IV SCH (13:59)
--- NOTE | 2017-08-14 14:11 | CP.PCM.PN ---
<LENO ADRIAN - Last Filed: 08/14/17 14:04> Subjective - Date & Time of Evaluation Date of Evaluation: 08/14/17 Time of Evaluation: 14:05 - Subjective Subjective: Medicine Progress Note for Dr. Estevez: Pt seen and examined at bedside. Pt denies any acute overnight events. Pt states that abdominal pain is improved and controlled mostly with pain medications. Pt denied CP, SOB, n/v/d, fever, chills, fatigue, or dizziness. Objective - Vital Signs/Intake and Output Vital Signs (last 24 hours): Temp Pulse Resp BP Pulse Ox 98.8 F 82 18 141/79 98 08/14/17 08:33 08/14/17 08:33 08/14/17 08:33 08/14/17 08:33 08/14/17 08:33 Intake and Output: 08/14/17 08/14/17 06:59 18:59 Intake Total 2850 Balance 2850 - Medications Medications: Current Medications Acetaminophen (Tylenol 325mg Tab) 650 mg PO Q6H PRN PRN Reason: Pain, moderate (4-7) Hydromorphone HCl (Dilaudid) 0.5 mg IVP Q4H PRN PRN Reason: Pain, severe (8-10) Last Admin: 08/13/17 11:08 Dose: 0.5 mg Lactated Ringer's (Lactated Ringer's) 1,000 mls @ 125 mls/hr IV .Q8H [facility] Last Admin: 08/13/17 21:00 Dose: 125 mls/hr Meropenem 1g/NS 100mL IVPB (Meropenem 1g/Ns 100ml Ivpb) 1 gm in 100 mls @ 100 mls/hr IVPB Q8 ANA MARIA PRN Reason: Protocol Last Admin: 08/14/17 06:50 Dose: 100 mls/hr Vancomycin HCl (Vancomycin 1gm) 1 gm in 250 mls @ 167 mls/hr IVPB Q12H ANA MARIA PRN Reason: Protocol Potassium Phosphate 15 mmole/ (Sodium Chloride) 255 mls @ 42.5 mls/hr IVPB ONCE ONE Stop: 08/14/17 17:39 Insulin Human Regular (Humulin R Low) 0 units SC ACHS ANA MARIA PRN Reason: Protocol Last Admin: 08/14/17 12:44 Dose: Not Given Levothyroxine Sodium (Synthroid) 25 mcg IVP DAILY [facility] Ondansetron HCl (Zofran Inj) 4 mg IVP Q4H PRN PRN Reason: Nausea/Vomiting Pantoprazole Sodium (Protonix Inj) 40 mg IVP DAILY [facility] Last Admin: 08/13/17 11:06 Dose: 40 mg - Labs Labs: 08/14/17 07:45 08/14/17 07:45 - Constitutional Appears: No Acute Distress - Head Exam Head Exam: ATRAUMATIC, NORMOCEPHALIC - Eye Exam Eye Exam: EOMI, PERRL - ENT Exam ENT Exam: Mucous Membranes Dry - Neck Exam Neck Exam: Full ROM. absent: Lymphadenopathy, Tenderness, Thyromegaly - Respiratory Exam Respiratory Exam: Clear to Ausculation Bilateral. absent: Rales, Rhonchi, Wheezes - Cardiovascular Exam Cardiovascular Exam: RRR. absent: Gallop, Rubs, Murmur - GI/Abdominal Exam GI & Abdominal Exam: Guarding, Soft, Tenderness, Rebound. absent: Distended, Pulsatile Mass Additional comments: Improved overall from yesterday - Extremities Exam Extremities Exam: Normal Inspection - Back Exam Back Exam: NORMAL INSPECTION - Neurological Exam Neurological Exam: Alert, Awake, Oriented x3 - Psychiatric Exam Psychiatric exam: Normal Affect, Normal Mood - Skin Skin Exam: Dry, Intact, Normal Color, Warm Assessment and Plan - Assessment and Plan (Free Text) Assessment: 62 F with PMHx of Sigmoid Diverticulitis admitted for evaluation and treatment for pelvic abscess. Plan: 1. Pelvic Abscess - Transvaginal US showed 1.9 cm posterior intramural uterine fibroid, thickened endometrium 9 mm, complex right adnexal mass 4 cm - Abd/Pelvic CT showed highly suspicious for 5x4.5 cm right plevic abscess, cannot exclude right tubo-ovarian abscess - Pelvic/abd US from 08/08 showed hepatomegaly otherwise negative - Blood culture positive for gram positive cocci - Urine culture negative - Started clear liquid diet - C/w LR at 125 ml/hr - ID Consulted Vancomycin 1 gm IVPB q12h day 1 Merrem 1g IVPB Q8H day 3 - GI Consulted Right pelvic abscess most likely from perforated diverticulitis or tuboovarian abscess - Surgery Consulted No surgical intervention at this time, cont IV abx - IR Consulted No intervention at this time - Medication Coordinator Consulted No intervention at this time - F/U chlaymydia/GC RNA - Tylenol for mild pain - Dilaudid 0.5 q4h for sever pain - Zofran for nausea - Incentive spirometry to avoid atelectasis 2. Hypokalemia - K 3.4 - Repleted with KCl 20 meq IVPB - Monitor and replete as needed 3. Hypomagnesmia - Mg 1.7 - Repleted with Mg Sulfate - Monitor and replete as needed 4. H/O DM - Low Dose SS - FS ACHS - F/U HA1C 5. H/O HTN - Hold Atenolol pending surg 6. H/O Hypothyroid - Synthroid 25 mcg IVP daily - TSH, Free T4 WNL GI/DVT PPx - Protonix/SCDs Pt seen and discussed in detail with Dr. Estevez. Tee Adrian, PGY1 <Rusty Estevez U - Last Filed: 08/16/17 21:54> Objective - Vital Signs/Intake and Output Vital Signs (last 24 hours): Temp Pulse Resp BP Pulse Ox 97.9 F 73 18 136/76 96 08/16/17 08:00 08/16/17 08:00 08/16/17 08:00 08/16/17 08:00 08/16/17 08:00 Intake and Output: 08/16/17 08/17/17 18:59 06:59 Intake Total 480 Balance 480 - Labs Labs: 08/16/17 05:30 08/16/17 05:30 Attending/Attestation - Attestation I have personally seen and examined this patient.: Yes I have fully participated in the care of the patient.: Yes I have reviewed all pertinent clinical information, including history, physical exam and plan: Yes
--- NOTE | 2017-08-14 14:22 | PN ---
DATE: 08/14/2017 SUBJECTIVE: The patient has had recurrence of her right pelvic pain. She denies any fevers or chills. PHYSICAL EXAMINATION: VITAL SIGNS: Reveal temperature of 98.8, blood pressure 141/79, heart rate of 82. ABDOMEN: Soft, obese with some pelvic tenderness. There is some voluntary guarding. LABORATORY DATA: Reveal white blood cell count down to 14.8, hemoglobin 11.7, potassium 3.4. The patient was seen by Interventional Radiology, feels that she is not a candidate for percutaneous drainage. She has a large right pelvic abscess. RECOMMENDATIONS: 1. The patient will need surgery for drainage of abscess and possible sigmoid colon resection with possible colostomy. 2. Continue IV antibiotics. Carlos Ba MD
--- NOTE | 2017-08-14 15:30 | CP.PCM.PN ---
Subjective - Date & Time of Evaluation Date of Evaluation: 08/14/17 Time of Evaluation: 12:05 - Subjective Subjective: Comfortable in bed, not in distress, afebrile, still with abdominal pain but less. Objective - Vital Signs/Intake and Output Vital Signs (last 24 hours): Temp Pulse Resp BP Pulse Ox 98.8 F 82 18 141/79 98 08/14/17 08:33 08/14/17 08:33 08/14/17 08:33 08/14/17 08:33 08/14/17 08:33 Intake and Output: 08/14/17 08/14/17 06:59 18:59 Intake Total 2850 Balance 2850 - Medications Medications: Current Medications Acetaminophen (Tylenol 325mg Tab) 650 mg PO Q6H PRN PRN Reason: Pain, moderate (4-7) Hydromorphone HCl (Dilaudid) 0.5 mg IVP Q4H PRN PRN Reason: Pain, severe (8-10) Last Admin: 08/13/17 11:08 Dose: 0.5 mg Lactated Ringer's (Lactated Ringer's) 1,000 mls @ 125 mls/hr IV .Q8H [facility] Last Admin: 08/13/17 21:00 Dose: 125 mls/hr Meropenem 1g/NS 100mL IVPB (Meropenem 1g/Ns 100ml Ivpb) 1 gm in 100 mls @ 100 mls/hr IVPB Q8 ANA MARIA PRN Reason: Protocol Last Admin: 08/14/17 06:50 Dose: 100 mls/hr Vancomycin HCl (Vancomycin 1gm) 250 mls @ 167 mls/hr IVPB Q12H ANA MARIA PRN Reason: Protocol Insulin Human Regular (Humulin R Low) 0 units SC ACHS ANA MARIA PRN Reason: Protocol Last Admin: 08/13/17 22:00 Dose: Not Given Levothyroxine Sodium (Synthroid) 25 mcg IVP DAILY [facility] Ondansetron HCl (Zofran Inj) 4 mg IVP Q4H PRN PRN Reason: Nausea/Vomiting Pantoprazole Sodium (Protonix Inj) 40 mg IVP DAILY [facility] Last Admin: 08/13/17 11:06 Dose: 40 mg - Labs Labs: 08/14/17 07:45 08/14/17 07:45 - Constitutional Appears: Non-toxic, No Acute Distress - Head Exam Head Exam: NORMAL INSPECTION - ENT Exam ENT Exam: Mucous Membranes Moist - Neck Exam Neck Exam: absent: Meningismus - Respiratory Exam Respiratory Exam: Decreased Breath Sounds - Cardiovascular Exam Cardiovascular Exam: +S1, +S2 - GI/Abdominal Exam GI & Abdominal Exam: Soft. absent: Tenderness Assessment and Plan - Assessment and Plan (Free Text) Plan: Assessment Sepsis due to probable right sided pelvic abscess (tubo-ovarian or GI in origin) history of diverticulitis HTN DM dyslipidemia obesity with BMI 32 Plan Started patient on Merrem (Day 3 today; unable to do IR-guided drainage because the fluid collection is small follow up further plans of Surgery will continue to monitor clinically
--- NOTE | 2017-08-15 01:33 | PN ---
DATE: LOCATION: The patient is seen in room 574, bed 1. SUBJECTIVE: The patient was seen lying in the bed again. According to the patient's PCP, the patient has been refusing HECTOR stockings and SCDs. Overnight nurse's notes were reviewed. The patient slept well. OBJECTIVE: VITAL SIGNS: T-max 98, afebrile; heart rate 78; blood pressure 121/80, 141/79, 145/87, 125/74; respirations 16; O2 sat is 98, 96, 97%. HEAD: The patient's head examination normocephalic, atraumatic. EENT: Examination shows pinkish conjunctivae. Anicteric sclerae. No oropharyngeal lesion. Dry oral mucosa. No neck rigidity. CHEST: Examination kyphosis. LUNGS: Examination shows no rales, crackles or wheezing. ABDOMEN: Today is soft, decreasing tenderness. Decreasing guarding. Right and left lower quadrant suprapubic area. No costovertebral angle tenderness. No rebound tenderness noted. GENITALIS: Female. RECTAL: Examination is deferred. EXTREMITIES: Shows no pitting edema. No calf tenderness or Homans' sign. NEUROLOGIC: The patient is alert, awake, oriented x3. The patient is able to move upper and lower extremities without assistance. Gait examination independent. VASCULAR: Palpable pulses. DIAGNOSTICS DATA: On 08/14/2017; WBC 14.8, hemoglobin/hematocrit 11.7/35.4, platelets 195. Granulocytes 81% segs. The patient's chemistry today shows sodium 140, potassium 3.4, chloride 103, CO2 is 25, anion gap 15, BUN 7, creatinine 0.5, GFR greater than 60. Fingerstick blood sugar 168, 92, 99. Calcium 8.3, phosphorus is 1.7, magnesium 1.7. LFTs are normal. The patient's blood cultures are growing gram-positive cocci in chains. The patient's repeat blood cultures are pending. The patient seen by exploration driller, STICKER HAND, and infectious disease. Their recommendations noted and explained to the patient's family. IMPRESSION: 1. Sepsis secondary to right-sided pelvic abscess, questionable tubo-ovarian abscess versus diverticular abscess. 2. Pelvic abscess likely related to colitis. 3. Obesity with elevated body mass index. 4. Right pelvic abscess. 5. Obesity. 6. Non-insulin requiring diabetes mellitus. 7. Hypertension. 8. Transient hypotension. 9. Sepsis. 10. Leukocytosis with granulocytosis. 11. Mild normocytic anemia. 12. Sepsis and bacteremia with gram-positive cocci in chains bacteremia. 13. Contamination. 14. Trace proteinuria. 15. Hypokalemia. 16. Hypophosphatemia. 17. History of hypothyroidism. 18. Non-insulin requiring diabetes mellitus with hemoglobin A1c of 7.3. PLAN: At this time, the patient seen by infectious disease. Recommend to continue IV antibiotic. The patient seen by STICKER HAND, recommends to continue with surgical intervention. The patient seen by GI, recommendation is that the patient needs surgical intervention, but the surgery recommends continuation of the IV antibiotic. No surgical intervention. The patient's current medications are as follows Dilaudid 0.5 mg IV q. 4 hours p.r.n., regular insulin sliding scale coverage. The patient has been given potassium supplementation and K-Phos supplementation. The patient is on Ringer's lactate 125 mL an hour. The patient has been given magnesium sulfate rider. The patient is on meropenem 1 g IV q. 8 hours, Protonix 40 IV daily, Synthroid 25 mcg daily, Tylenol 650 p.o. q. 6 hours p.r.n. The patient is on vancomycin which is started today by Dr. Queen. Vancomycin 1 g IV q. 12 hours, Zofran 4 mg IV q. 4 hours p.r.n. The patient was started on liquid diet. The patient is out of bed to chair. HECTOR stockings. SCDs has been ordered. At present, the patient will be continued on the above therapeutic intervention. The patient was referred to case management for discharge. The patient may need long-term IV antibiotic for which the patient may need PICC line placement if necessary. Rusty Estevez MD
[2017-08-15] MEDS: Meropenem 1g/NS 100mL IVPB 1 GM/100 ML PIGGYBACK IVPB SCH ×3 (06:31→21:20)
[2017-08-15 07:17] LABS: BASO # 0.02 K/mm3 (0.0-2.0); BASO % 0.2 % (0.0-3.0); EOS # 0.1 (0.0-0.7); EOS % 1.1 % (1.5-5.0); GRAN # 8.41 (1.4-6.5); GRAN % 75.1 % (50.0-68.0); LYMPH # 1.9 (1.2-3.4); LYMPH % 17.1 % (22.0-35.0); MEAN CELL VOLUME 84.5 fl (80.0-105.0); MEAN CORPUSCULAR HEMOGLOBIN 27.8 pg (25.0-35.0); MEAN CORPUSCULAR HGB CONC 32.9 g/dl (31.0-37.0); MEAN PLATELET VOLUME 10.5 fl (7.0-11.0); MONO # 0.7 (0.1-0.6); MONO % 6.5 % (1.0-6.0); RED CELL DISTRIBUTION WIDTH 14.2 % (11.5-14.5); WHITE BLOOD COUNT 11.2 10^3/ul (4.5-11.0)
[2017-08-15 07:45] LABS: ALKALINE PHOSPHATASE 65 U/L (38-126); ALT/SGPT 14 U/L (7-56); AST/SGOT 19 U/L (14-36); BILIRUBIN,TOTAL 0.7 mg/dL (0.2-1.3); BLOOD UREA NITROGEN 5 mg/dL (7-21); CALCIUM 8.1 mg/dL (8.4-10.5); CARBON DIOXIDE 29 mmol/L (21-33); CHLORIDE 101 mmol/L (98-107); GFR AFRICAN-AMERICAN > 60; GLUCOSE,RANDOM 122 mg/dL (70-110); POTASSIUM 3.4 mmol/L (3.6-5.0); SODIUM 140 mmol/L (132-148); TOTAL PROTEIN 6.2 g/dL (5.8-8.3)
[2017-08-15] MEDS: Insulin Reg-LOW-Coverage SC SCH ×4 (08:22→22:10)
--- NOTE | 2017-08-15 09:42 | CP.PCM.PN ---
<Raoul Eugene - Last Filed: 08/15/17 09:37> Subjective - Date & Time of Evaluation Date of Evaluation: 08/15/17 Time of Evaluation: 09:37 - Subjective Subjective: PGY1 Note for Dr. Singh HPI: Patient seen and examined at bedside. Doing well. Pain is getting better. Still having some diarrhea. No other complaints at this time. Denies Fever and chills. No N/V Objective - Vital Signs/Intake and Output Vital Signs (last 24 hours): Temp Pulse Resp BP Pulse Ox 98.3 F 72 20 155/73 H 96 08/15/17 07:50 08/15/17 07:50 08/15/17 07:50 08/15/17 07:50 08/15/17 07:50 Intake and Output: 08/15/17 08/15/17 06:59 18:59 Intake Total 3100 Balance 3100 - Medications Medications: Current Medications Acetaminophen (Tylenol 325mg Tab) 650 mg PO Q6H PRN PRN Reason: Pain, moderate (4-7) Hydromorphone HCl (Dilaudid) 0.5 mg IVP Q4H PRN PRN Reason: Pain, severe (8-10) Last Admin: 08/13/17 11:08 Dose: 0.5 mg Lactated Ringer's (Lactated Ringer's) 1,000 mls @ 125 mls/hr IV .Q8H [facility] Last Admin: 08/14/17 13:59 Dose: 125 mls/hr Meropenem 1g/NS 100mL IVPB (Meropenem 1g/Ns 100ml Ivpb) 1 gm in 100 mls @ 100 mls/hr IVPB Q8 [facility] PRN Reason: Protocol Last Admin: 08/15/17 06:31 Dose: 100 mls/hr Vancomycin HCl (Vancomycin 1gm) 1 gm in 250 mls @ 167 mls/hr IVPB Q12H [facility] PRN Reason: Protocol Last Admin: 08/14/17 22:45 Dose: 167 mls/hr Insulin Human Regular (Humulin R Low) 0 units SC ACHS [facility] PRN Reason: Protocol Last Admin: 08/15/17 08:22 Dose: Not Given Levothyroxine Sodium (Synthroid) 25 mcg IVP DAILY [facility] Last Admin: 08/14/17 10:56 Dose: 25 mcg Ondansetron HCl (Zofran Inj) 4 mg IVP Q4H PRN PRN Reason: Nausea/Vomiting Pantoprazole Sodium (Protonix Inj) 40 mg IVP DAILY [facility] Last Admin: 08/14/17 11:55 Dose: 40 mg - Labs Labs: 08/15/17 06:30 08/15/17 06:30 - Constitutional Appears: Well, Non-toxic, No Acute Distress - Head Exam Head Exam: ATRAUMATIC, NORMAL INSPECTION, NORMOCEPHALIC - Eye Exam Eye Exam: EOMI - ENT Exam ENT Exam: Mucous Membranes Moist - Respiratory Exam Respiratory Exam: Clear to Ausculation Bilateral, NORMAL BREATHING PATTERN - Cardiovascular Exam Cardiovascular Exam: REGULAR RHYTHM - GI/Abdominal Exam GI & Abdominal Exam: Soft, Tenderness (mild tenderness to palpation), Normal Bowel Sounds. absent: Distended - Extremities Exam Extremities Exam: absent: Joint Swelling, Tenderness - Back Exam Back Exam: absent: CVA tenderness (L), CVA tenderness (R) - Neurological Exam Neurological Exam: Alert, Awake, Oriented x3 - Psychiatric Exam Psychiatric exam: Normal Affect, Normal Mood - Skin Skin Exam: Dry, Intact, Normal Color, Warm Assessment and Plan - Assessment and Plan (Free Text) Assessment: 62 F with a Pelvic Abscess Plan: * PICC insertion today * Further management per ID and Primary team * F/u in Dr. Singh's office in [address] scan. Office number <Jonas Singh - Last Filed: 08/17/17 21:25> Objective - Vital Signs/Intake and Output Vital Signs (last 24 hours): Temp Pulse Resp BP Pulse Ox 97.9 F 73 18 136/76 96 08/16/17 08:00 08/16/17 08:00 08/16/17 08:00 08/16/17 08:00 08/16/17 08:00 - Labs Labs: 08/16/17 05:30 08/16/17 05:30 Attending/Attestation - Attestation I have fully participated in the care of the patient.: Yes I have reviewed all pertinent clinical information, including history, physical exam and plan: Yes Notes (Text): 08/17/17 21:24 Pt with Diverticulitis with pelvic abscess Pt is improving clinically Tolerating liquid diet Symptomatically improved C.w IV antibiotics Plan d.w primary team.
[2017-08-15] MEDS: Levothyroxine 100 mcg (0.1 mg) Inj IVP SCH (10:25)
[2017-08-15] MEDS: Vancomycin 1gm in NS 250ml 1 GM/250 ML BAG IVPB SCH ×2 (10:27→23:05)
[2017-08-15] MEDS ORDERED: Iohexol 350 MG/100 ML VIAL ONE (11:32)
--- NOTE | 2017-08-15 12:03 | CP.PCM.PN ---
<LENO ADRIAN - Last Filed: 08/15/17 11:59> Subjective - Date & Time of Evaluation Date of Evaluation: 08/15/17 Time of Evaluation: 12:00 - Subjective Subjective: Medicine Progress Note for Dr. Estevez: Pt seen and examined at bedside. Pt denies any acute overnight events. Pt states that abdominal pain is improved and is tolerating diet without n/v. Pt c/ o diarrhea. Pt denies CP, SOB, fever, chills, dysuria, polyuria, melena, or BRBPR. Objective - Vital Signs/Intake and Output Vital Signs (last 24 hours): Temp Pulse Resp BP Pulse Ox 98.3 F 72 20 155/73 H 96 08/15/17 07:50 08/15/17 07:50 08/15/17 07:50 08/15/17 07:50 08/15/17 07:50 Intake and Output: 08/15/17 08/15/17 06:59 18:59 Intake Total 3100 Balance 3100 - Medications Medications: Current Medications Acetaminophen (Tylenol 325mg Tab) 650 mg PO Q6H PRN PRN Reason: Pain, moderate (4-7) Hydromorphone HCl (Dilaudid) 0.5 mg IVP Q4H PRN PRN Reason: Pain, severe (8-10) Last Admin: 08/13/17 11:08 Dose: 0.5 mg Lactated Ringer's (Lactated Ringer's) 1,000 mls @ 125 mls/hr IV .Q8H [facility] Last Admin: 08/14/17 13:59 Dose: 125 mls/hr Meropenem 1g/NS 100mL IVPB (Meropenem 1g/Ns 100ml Ivpb) 1 gm in 100 mls @ 100 mls/hr IVPB Q8 [facility] PRN Reason: Protocol Last Admin: 08/15/17 06:31 Dose: 100 mls/hr Vancomycin HCl (Vancomycin 1gm) 1 gm in 250 mls @ 167 mls/hr IVPB Q12H [facility] PRN Reason: Protocol Last Admin: 08/15/17 10:27 Dose: 167 mls/hr Potassium Chloride (Potassium Chloride 20 Meq/100 Ml) 20 meq in 100 mls @ 50 mls/hr IVPB Q2H [facility] Stop: 08/15/17 14:14 Last Admin: 08/15/17 10:43 Dose: 50 mls/hr Insulin Human Regular (Humulin R Low) 0 units SC ACHS [facility] PRN Reason: Protocol Last Admin: 08/15/17 08:22 Dose: Not Given Levothyroxine Sodium (Synthroid) 25 mcg IVP DAILY [facility] Last Admin: 08/15/17 10:25 Dose: 25 mcg Nystatin (Nystatin Oral Susp) 5 ml PO QID [facility] Ondansetron HCl (Zofran Inj) 4 mg IVP Q4H PRN PRN Reason: Nausea/Vomiting Pantoprazole Sodium (Protonix Inj) 40 mg IVP DAILY [facility] Last Admin: 08/15/17 10:25 Dose: 40 mg - Labs Labs: 08/15/17 06:30 08/15/17 06:30 - Constitutional Appears: No Acute Distress - Head Exam Head Exam: ATRAUMATIC, NORMOCEPHALIC - Eye Exam Eye Exam: EOMI, PERRL - ENT Exam ENT Exam: Mucous Membranes Moist - Neck Exam Neck Exam: Full ROM. absent: Lymphadenopathy, Tenderness, Thyromegaly - Respiratory Exam Respiratory Exam: Clear to Ausculation Bilateral. absent: Rales, Rhonchi, Wheezes - Cardiovascular Exam Cardiovascular Exam: RRR. absent: Gallop, Rubs, Murmur - GI/Abdominal Exam GI & Abdominal Exam: Soft, Tenderness (decreased; improved), Rebound (decreased ; improved). absent: Distended, Guarding - Extremities Exam Extremities Exam: Normal Inspection - Neurological Exam Neurological Exam: Awake, Oriented x3 - Psychiatric Exam Psychiatric exam: Normal Affect, Normal Mood - Skin Skin Exam: Dry, Intact, Normal Color, Warm Assessment and Plan - Assessment and Plan (Free Text) Assessment: 62 F with PMHx of Sigmoid Diverticulitis admitted for evaluation and treatment for pelvic abscess. Plan: 1. Pelvic Abscess - Transvaginal US showed 1.9 cm posterior intramural uterine fibroid, thickened endometrium 9 mm, complex right adnexal mass 4 cm - Abd/Pelvic CT showed highly suspicious for 5x4.5 cm right plevic abscess, cannot exclude right tubo-ovarian abscess - Pelvic/abd US from 08/08 showed hepatomegaly otherwise negative - Blood culture positive for streptococcus mitis, repeat cultures negative after 24 hrs - Urine culture negative - Advanced to full liquid diet as patient is tolerating CLD - C/w LR at 125 ml/hr - ID Consulted Vancomycin 1 gm IVPB q12h day 2 Merrem 1g IVPB Q8H day 4 - GI Consulted Right pelvic abscess most likely from perforated diverticulitis or tuboovarian abscess - Surgery Consulted No surgical intervention at this time, cont IV abx PICC line placed F/U outpatient - IR Consulted No intervention at this time - Bench Carpenter Consulted No intervention at this time - F/U chlaymydia/GC RNA - Tylenol for mild pain - Dilaudid 0.5 q4h for sever pain - Zofran for nausea - Incentive spirometry to avoid atelectasis 2. Hypokalemia - K 3.4 - KCl 20 meq IVPB x2 - Monitor and replete as needed 3. Hypomagnesmia - Mg 2.0 - Repleted with Mg Sulfate - Monitor and replete as needed 4. Oral Yeast infection - Nystatin Oral suspension 5. H/O DM - Low Dose SS - FS ACHS - F/U HA1C 6. H/O HTN - Hold Atenolol pending surg 7. H/O Hypothyroid - Synthroid 25 mcg IVP daily - TSH, Free T4 WNL GI/DVT PPx - Protonix/SCDs Pt seen and discussed in detail with Dr. Estevez. Tee Adrian, PGY1 <Rusty Estevez U - Last Filed: 08/16/17 21:55> Objective - Vital Signs/Intake and Output Vital Signs (last 24 hours): Temp Pulse Resp BP Pulse Ox 97.9 F 73 18 136/76 96 08/16/17 08:00 08/16/17 08:00 08/16/17 08:00 08/16/17 08:00 08/16/17 08:00 Intake and Output: 08/16/17 08/17/17 18:59 06:59 Intake Total 480 Balance 480 - Labs Labs: 08/16/17 05:30 08/16/17 05:30 Attending/Attestation - Attestation I have personally seen and examined this patient.: Yes I have fully participated in the care of the patient.: Yes I have reviewed all pertinent clinical information, including history, physical exam and plan: Yes
--- NOTE | 2017-08-15 12:33 | CP.PCM.PN ---
Subjective - Date & Time of Evaluation Date of Evaluation: 08/15/17 Time of Evaluation: 11:45 - Subjective Subjective: Still having abdominal pain, no fevers. Objective - Vital Signs/Intake and Output Vital Signs (last 24 hours): Temp Pulse Resp BP Pulse Ox 98.3 F 72 20 155/73 H 96 08/15/17 07:50 08/15/17 07:50 08/15/17 07:50 08/15/17 07:50 08/15/17 07:50 Intake and Output: 08/15/17 08/15/17 06:59 18:59 Intake Total 3100 Balance 3100 - Medications Medications: Current Medications Acetaminophen (Tylenol 325mg Tab) 650 mg PO Q6H PRN PRN Reason: Pain, moderate (4-7) Hydromorphone HCl (Dilaudid) 0.5 mg IVP Q4H PRN PRN Reason: Pain, severe (8-10) Last Admin: 08/13/17 11:08 Dose: 0.5 mg Lactated Ringer's (Lactated Ringer's) 1,000 mls @ 125 mls/hr IV .Q8H [facility] Last Admin: 08/14/17 13:59 Dose: 125 mls/hr Meropenem 1g/NS 100mL IVPB (Meropenem 1g/Ns 100ml Ivpb) 1 gm in 100 mls @ 100 mls/hr IVPB Q8 [facility] PRN Reason: Protocol Last Admin: 08/15/17 06:31 Dose: 100 mls/hr Vancomycin HCl (Vancomycin 1gm) 1 gm in 250 mls @ 167 mls/hr IVPB Q12H [facility] PRN Reason: Protocol Last Admin: 08/14/17 22:45 Dose: 167 mls/hr Insulin Human Regular (Humulin R Low) 0 units SC ACHS [facility] PRN Reason: Protocol Last Admin: 08/15/17 08:22 Dose: Not Given Levothyroxine Sodium (Synthroid) 25 mcg IVP DAILY [facility] Last Admin: 08/14/17 10:56 Dose: 25 mcg Ondansetron HCl (Zofran Inj) 4 mg IVP Q4H PRN PRN Reason: Nausea/Vomiting Pantoprazole Sodium (Protonix Inj) 40 mg IVP DAILY [facility] Last Admin: 08/14/17 11:55 Dose: 40 mg - Labs Labs: 08/15/17 06:30 08/15/17 06:30 - Constitutional Appears: Non-toxic, No Acute Distress - Head Exam Head Exam: NORMAL INSPECTION - ENT Exam ENT Exam: Mucous Membranes Moist - Neck Exam Neck Exam: absent: Meningismus - Respiratory Exam Respiratory Exam: Decreased Breath Sounds - Cardiovascular Exam Cardiovascular Exam: +S1, +S2 - GI/Abdominal Exam GI & Abdominal Exam: Soft, Tenderness (right lower quadrant). absent: Distended , Firm, Guarding, Rigid, Rebound Assessment and Plan - Assessment and Plan (Free Text) Plan: Assessment Sepsis due to probable right sided pelvic abscess (tubo-ovarian or GI in origin) history of diverticulitis HTN DM dyslipidemia obesity with BMI 32 Plan continue Merrem (Day 4 today); unable to do IR-guided drainage because the fluid collection is small recommend drainage of the fluid collection - discussed with Dr. Ba (and he recommends drainage of the fluid as well), and awaiting further plans of Surgery will continue to monitor clinically
[2017-08-15] MEDS: Lactated Ringer's 1,000 ML IV SCH ×2 (17:12→23:00)
[2017-08-15] MEDS: Nystatin 100,000 Units/ml Oral Susp 5 ml UD PO SCH ×3 (17:13→21:21)
[2017-08-15 21:57] VITALS: RESP 18
--- NOTE | 2017-08-16 00:46 | PN ---
DATE: 08/15/2017 SUBJECTIVE: The patient is sitting in a chair, comfortable. She still has intermittent right pelvic pain. She denies any nausea, vomiting, fevers or chills. PHYSICAL EXAMINATION: VITAL SIGNS: Reveal temperature of 98.3, blood pressure 155/73, heart rate is 72. ABDOMEN: Soft with mild right pelvic tenderness. No rebound. No guarding. EXTREMITIES: Show no edema. LABORATORY DATA: Reveal white blood cell count of 11.2, hemiglobin 11.5. Chemistries reveal blood sugar 139, potassium is 3.4. IMPRESSION: A 62-year-old female with a 5-cm right pelvic abscess, most likely the result of sigmoid diverticulitis with sealed perforation, another possibility is a tubo-ovarian abscess. RECOMMENDATIONS: 1. Continue IV antibiotics for now. 2. Await decision on surgery for exploratory laparotomy with drainage of abscess and possible sigmoid colon resection and possible Marie's procedure with colostomy. Carlos Ba MD
[2017-08-16] MEDS: Meropenem 1g/NS 100mL IVPB 1 GM/100 ML PIGGYBACK IVPB SCH ×2 (05:16→13:04)
[2017-08-16] MEDS: Lactated Ringer's 1,000 ML IV SCH (06:54)
[2017-08-16 07:42] LABS: BASO # 0.03 K/mm3 (0.0-2.0); BASO % 0.3 % (0.0-3.0); EOS # 0.1 (0.0-0.7); EOS % 1.3 % (1.5-5.0); GRAN # 6.81 (1.4-6.5); GRAN % 67.2 % (50.0-68.0); HEMATOCRIT 37.6 % (36.0-48.0); LYMPH # 2.3 (1.2-3.4); LYMPH % 23.1 % (22.0-35.0); MEAN CELL VOLUME 85.5 fl (80.0-105.0); MEAN CORPUSCULAR HGB CONC 32.7 g/dl (31.0-37.0); MEAN PLATELET VOLUME 10.9 fl (7.0-11.0); MONO # 0.8 (0.1-0.6); MONO % 8.1 % (1.0-6.0); RED CELL DISTRIBUTION WIDTH 14.3 % (11.5-14.5); WHITE BLOOD COUNT 10.1 10^3/ul (4.5-11.0)
--- NOTE | 2017-08-16 08:37 | CP.PCM.PN ---
<Ambrosio Mora - Last Filed: 08/16/17 08:38> Subjective - Date & Time of Evaluation Date of Evaluation: 08/16/17 Time of Evaluation: 08:37 - Subjective Subjective: General Surgery Progress Note for Dr. Singh Patient seen and examined at bedside. No acute event overnight. Patient resting in bed comfortably. She had PICC placed yesterday. Patient reports to still having some abdominal pain but states it is controlled. She has no other complaints at this time. Objective - Vital Signs/Intake and Output Vital Signs (last 24 hours): Temp Pulse Resp BP Pulse Ox 98.8 F 76 18 127/81 98 08/15/17 16:00 08/15/17 16:00 08/15/17 16:00 08/15/17 16:00 08/15/17 16:00 Intake and Output: 08/16/17 08/16/17 06:59 18:59 Intake Total 720 Balance 720 - Medications Medications: Current Medications Acetaminophen (Tylenol 325mg Tab) 650 mg PO Q6H PRN PRN Reason: Pain, moderate (4-7) Hydromorphone HCl (Dilaudid) 0.5 mg IVP Q4H PRN PRN Reason: Pain, severe (8-10) Last Admin: 08/13/17 11:08 Dose: 0.5 mg Lactated Ringer's (Lactated Ringer's) 1,000 mls @ 125 mls/hr IV .Q8H [facility] Last Admin: 08/16/17 06:54 Dose: 125 mls/hr Meropenem 1g/NS 100mL IVPB (Meropenem 1g/Ns 100ml Ivpb) 1 gm in 100 mls @ 100 mls/hr IVPB Q8 [facility] PRN Reason: Protocol Last Admin: 08/16/17 05:16 Dose: 100 mls/hr Vancomycin HCl (Vancomycin 1gm) 1 gm in 250 mls @ 167 mls/hr IVPB Q12H [facility] PRN Reason: Protocol Last Admin: 08/15/17 23:05 Dose: 167 mls/hr Insulin Human Regular (Humulin R Low) 0 units SC ACHS [facility] PRN Reason: Protocol Last Admin: 08/15/17 22:10 Dose: Not Given Levothyroxine Sodium (Synthroid) 25 mcg IVP DAILY [facility] Last Admin: 08/15/17 10:25 Dose: 25 mcg Nystatin (Nystatin Oral Susp) 5 ml PO QID [facility] Last Admin: 08/15/17 21:21 Dose: 5 ml Ondansetron HCl (Zofran Inj) 4 mg IVP Q4H [facility] PRN Reason: Nausea/Vomiting Pantoprazole Sodium (Protonix Inj) 40 mg IVP DAILY [facility] Last Admin: 08/15/17 10:25 Dose: 40 mg - Labs Labs: 08/16/17 05:30 08/15/17 06:30 - Constitutional Appears: No Acute Distress - Head Exam Head Exam: ATRAUMATIC, NORMOCEPHALIC - Eye Exam Eye Exam: Normal appearance - ENT Exam ENT Exam: Mucous Membranes Moist - Respiratory Exam Respiratory Exam: NORMAL BREATHING PATTERN - Cardiovascular Exam Cardiovascular Exam: REGULAR RHYTHM - GI/Abdominal Exam GI & Abdominal Exam: Soft, Tenderness (lower abdomen). absent: Distended, Firm , Guarding, Rigid, Rebound - Extremities Exam Extremities Exam: Normal Capillary Refill - Neurological Exam Neurological Exam: Alert, Awake, Oriented x3 - Psychiatric Exam Psychiatric exam: Normal Affect, Normal Mood - Skin Skin Exam: Dry, Intact, Normal Color, Warm Assessment and Plan - Assessment and Plan (Free Text) Plan: 62 F s/p PICC placement with Pelvic Abscess -Monitor WBC -Continue IV antibiotics as per ID -Management as per primary -Follow up as outpatient in office with Dr. Singh [ ] in [address] scan -[facility] <Jonas Singh B - Last Filed: 08/17/17 21:30> Objective - Vital Signs/Intake and Output Vital Signs (last 24 hours): Temp Pulse Resp BP Pulse Ox 97.9 F 73 18 136/76 96 08/16/17 08:00 08/16/17 08:00 08/16/17 08:00 08/16/17 08:00 08/16/17 08:00 - Labs Labs: 08/16/17 05:30 08/16/17 05:30 Attending/Attestation - Attestation I have fully participated in the care of the patient.: Yes I have reviewed all pertinent clinical information, including history, physical exam and plan: Yes Notes (Text): 08/17/17 21:29 Pt with Resolving Pelvic abscess with diverticulitis Pt is improving clinically C.w IV antibiotics Reg diet f/u as out pt Plan d.w primary team in detail.
[2017-08-16 08:51] VITALS: BP 136/76; PULSE 73; TEMP 97.9; O2SAT 96
[2017-08-16] MEDS: Nystatin 100,000 Units/ml Oral Susp 5 ml UD PO SCH ×2 (09:22→17:00)
[2017-08-16] MEDS: Levothyroxine 100 mcg (0.1 mg) Inj IVP SCH (09:22)
[2017-08-16] MEDS: Insulin Reg-LOW-Coverage SC SCH ×2 (09:36→12:09)
[2017-08-16] MEDS: Vancomycin 1gm in NS 250ml 1 GM/250 ML BAG IVPB SCH (10:51)
[2017-08-16 11:10] LABS: ALKALINE PHOSPHATASE 74 U/L (38-126); ALT/SGPT 19 U/L (7-56); AST/SGOT 33 U/L (14-36); BILIRUBIN,DIRECT 0.4 mg/dL (0.0-0.4); BILIRUBIN,TOTAL 0.7 mg/dL (0.2-1.3); BLOOD UREA NITROGEN 6 mg/dL (7-21); CALCIUM 8.6 mg/dL (8.4-10.5); CARBON DIOXIDE 29 mmol/L (21-33); CHLORIDE 101 mmol/L (98-107); GFR AFRICAN-AMERICAN > 60; GLUCOSE,RANDOM 114 mg/dL (70-110); POTASSIUM 3.7 mmol/L (3.6-5.0); SODIUM 139 mmol/L (132-148); TOTAL PROTEIN 6.6 g/dL (5.8-8.3)
--- NOTE | 2017-08-16 16:52 | PN ---
DATE: 08/16/2017 SUBJECTIVE: The patient is in bed, in no acute distress, nontoxic. PHYSICAL EXAMINATION: VITAL SIGNS: Temperature is 97, blood pressure 130/70, and respiratory rate 18. HEENT: Unremarkable. NECK: Supple. LUNGS: Decreased breath sounds. HEART: Normal S1 and S2. ABDOMEN: Soft and nontender. LABORATORY DATA: Reveals a white count of 10, hemoglobin of 12, and platelets of 208. BUN of 6 and creatinine of 0.5. Urinalysis is noted. Microbiology reveals, blood cultures have Streptococcus mitis. ASSESSMENT AND PLAN: A 62-year-old female seen earlier in 574, bed 1 with sepsis with a right-sided pelvic abscess, probable gastrointestinal in origin and today is day #5 of meropenem. Continue with the intravenous antibiotics. The patient's Streptococcus mitis sensitivity is reviewed, pansensitive bacteria. We will need a repeat imaging in 7-10 days. Discontinue the vancomycin and continue meropenem and repeat imaging with weekly CBC, SMA-18, sedimentation rate, and C-reactive. Case discussed with Dr. Estevez. Mack Deras MD
--- NOTE | 2017-08-17 03:22 | PN ---
DATE: 08/15/2017 SUBJECTIVE: The patient is seen in room 574, bed #1. The patient is seen out of bed to chair. Overnight nurses' notes were reviewed. The patient has been refusing SCDs and HECTOR stockings. Overnight nurses' notes were reviewed, the patient was seen with the patient's nurse at bedside. The patient was seen by the case management for home IV antibiotic management for the treatment of pelvic abscess. Patient is seen and examined in room 574 bed one with the patient's nurse present at the bedside, the patient is out of bed to chair, standing up. The patient states that the abdominal pain has improved. PHYSICAL EXAMINATION: GENERAL: The patient does not appear to be in any distress. VITAL SIGNS: The patient's vital signs in the last 24 hours; T-max is 99.3, down to 98.1 to 98.3. Pulse rate is 82, 78 and 72. Blood pressure 145/87, 141/79, 121/80 and 155/73. Respirations 20 and O2 sat is 98%, 96% and 98%. HEENT: The patient is seen, head examination normocephalic and atraumatic. HEENT examination shows pink conjunctivae. Anicteric sclerae, dry oral mucosa. NECK: No neck rigidity. CHEST: Kyphosis. LUNGS: Shows no rales, crackles or wheezing. CARDIOVASCULAR: S1, S2, regular rhythm. No costovertebral angle tenderness. ABDOMEN: Soft. Positive bowel sounds. Decreasing lower abdominal left lower quadrant and right lower quadrant decreasing tenderness. Positive voluntary guarding noted. No rebound tenderness was reproducible. GENITALIA: Female. RECTAL: Examination is deferred. EXTREMITIES: Shows no pitting edema, no calf tenderness or no Homans' sign. MUSCULOSKELETAL: Shows a body mass index elevated. The patient's motor strength is 5/5 in upper and lower extremity. DIAGNOSTICS: On 08/15/2017, WBC 11.2, hemoglobin and hematocrit 11.1 and 35.0 and platelet 204. Granulocytes 75% segs. The patient has abnormal chemistry from 08/15/2017; potassium is 3.4, glucose is 122, calcium 8.1 and magnesium 2.0. Blood cultures growing strep mitis. IMPRESSION: 1. Questionable possible Streptococcus mitis bacteremia. 2. Sepsis secondary to right-sided pelvic abscess either secondary to diverticulitis or tubo-ovarian. 3. Morbid obesity. 4. Type 2 non insulin-requiring diabetes mellitus. 5. Leukocytosis with granulocytosis. 6. Hypertension. 7. Dyslipidemia. 8. Obesity with elevated body mass index. 9. Hypokalemia. 10. Leukocytosis with granulocytosis. 11. History of hypothyroidism. 12. Hypertension. 13. Mild normocytic anemia. 14. Hypophosphatemia and hypokalemia. 15. Non insulin-requiring diabetes mellitus with hyperglycemia and hemoglobin A1c of 7.3. 16. Trace proteinuria. 17. Streptococcus mitis bacteremia. 18. Abdominal pain secondary to pelvic abscess. PLAN: At this time, the patient is to be continued on IV fluid, IV antibiotic, Dilaudid 0.5 IV q. 4 hours p.r.n., insulin sliding scale coverage, , meropenem 1 g IV q. 8 hours. The patient is also ordered Synthroid. The patient is on other medications as per the MAR. The patient is awaiting for a PICC line placement for long-term home IV antibiotic as surgery is not anticipating or contemplating any surgical intervention though recommended by GI. Surgery wants to try IV antibiotics which as per the infectious disease recommendation, infectious disease recommends IV antibiotic with home IV antibiotic for which the patient is awaiting a PICC line placement. Once the PICC line was placed, the patient will be considered for home IV antibiotic with close followup with surgery and [employer] and gastroenterology. Dictated and electronically signed not read. Rusty Estevez MD
--- NOTE | 2017-08-18 07:46 | DS ---
HISTORY OF PRESENT ILLNESS: The patient was cleared for discharge by all specialty. The patient was seen ambulating in room 574, bed 1. The patient's overnight nurse's notes were reviewed. The patient refused SCDs. The patient refused HECTOR stockings. PHYSICAL EXAMINATION: VITAL SIGNS: T-max is 98.8, pulse 73, blood pressure 136/70, respirations 18, O2 sat 96-98%. HEENT: Head examination normocephalic and atraumatic. HEENT examination shows pink conjunctivae. Anicteric sclerae. No oropharyngeal lesion. NECK: No neck rigidity. CHEST: Examination symmetrical. LUNGS: Lung examination shows no rales, crackles, or wheezing. CARDIOVASCULAR: S1, S2, regular rhythm. ABDOMEN: Soft. Positive bowel sounds. No costovertebral angle tenderness. No rebound tenderness. Slight voluntary guarding in the left lower quadrant, very mild suprapubic tenderness. No right lower quadrant tenderness. No periumbilical tenderness. GENITALIA: Female. RECTAL: Examination is deferred. EXTREMITIES: Extremity shows no pitting edema. No calf tenderness. No Homans sign. MUSCULOSKELETAL: Examination shows a body mass index of greater than 35. GAIT: Examination is independent. NEUROLOGIC: Examination without any gross deficit. DIAGNOSTICS: On 08/16/2017; WBC 10.1, hemoglobin/hematocrit 12.3/36.7, platelet 208. Sodium 139, potassium 3.7, chloride 101, CO2 29, anion gap 13, BUN 6, creatinine 0.6, GFR greater than 6, glucose 140, calcium 8.6, magnesium 2.0. LFTs are normal. Blood cultures negative from 08/13/2017, 08/12/2017. Blood cultures are Strep mitis. IMPRESSION AND PLAN: 1. Right pelvic abscess centered in right adnexa, possible right tubo-ovarian abscess versus diverticulitis abscess. 2. Abdominal pain secondary to above. 3. Mild cardiomegaly. 4. Hiatal hernia. 5. Hepatic steatosis with fatty infiltration of the liver. 6. Thickened postmenopausal endometrium of 9 mm. 7. Right adnexal mass. 8. Non-visualized left ovary. 9. Possible age-indeterminate inferior infarct. 10. Obesity with elevated body mass index of 35.1. 11. History of diabetes, hypothyroidism, hypertension. 12. Streptococcus mitis bacteremia and sepsis. 13. Sepsis with right-sided pelvic abscess, probably secondary to diverticulitis and Streptococcus mitis bacteremia. 14. Status post left upper extremity PICC line placement. The patient's case is referred to [facility] for home IV antibiotics. The patient's discharge medications are Tylenol 650 q.6 p.r.n., Tenormin 25 daily to be resumed, Synthroid 88 mcg daily to be resumed, meropenem 1 g IV q.8 hours, Glumetza 1000 mg daily, nystatin oral suspension q.i.d., Protonix 40 mg daily. DISCHARGE FOLLOWUP: The patient was advised follow up with Dr. Estevez, Dr. Singh, and Dr. Herzog within one week. The patient was advised to follow up with Dr. Estevez for weekly lab results. The patient was advised surgical followup, [employer]ANT followup, GI followup, within one week. The patient was advised and explained by surgery resident and the GI that she will need a repeat CAT scan of the abdomen and pelvis within one week, which the patient and the family understood and acknowledged.. Time spent in the entire discharge process more than 45 minutes. Dictated and electronically signed, not read. Rusty Estevez MD
== END 2017-08-16 16:36 | disposition home or self-care (01) | DRG 872 ==
LOC: ED 21:38 → EROBSV 23:00 → OBSVTOIN 08-12 05:23 → ERH 08-12 05:29 → 5RSO 08-12 06:17
PROVIDERS: ADMIT Internal Medicine; ATTEND Internal Medicine
PROC: 02HV33Z Insertion of Infusion Device into Superior Vena Cava, Percutaneous Approach (ICD-10-PCS; principal; 2017-08-15)
DX: A41.9 Sepsis, unspecified organism (principal); K57.20 Diverticulitis of large intestine with perforation and abscess without bleeding; B37.0 Candidal stomatitis; N70.93 Salpingitis and oophoritis, unspecified; I11.9 Hypertensive heart disease without heart failure; E11.65 Type 2 diabetes mellitus with hyperglycemia; E66.01 Morbid (severe) obesity due to excess calories; E83.39 Other disorders of phosphorus metabolism; K76.0 Fatty (change of) liver, not elsewhere classified; E78.5 Hyperlipidemia, unspecified; E03.9 Hypothyroidism, unspecified; K44.9 Diaphragmatic hernia without obstruction or gangrene; E87.6 Hypokalemia; D64.9 Anemia, unspecified; D25.1 Intramural leiomyoma of uterus; R03.1 Nonspecific low blood-pressure reading; Z68.35 Body mass index [BMI] 35.0-35.9, adult; Z79.84 Long term (current) use of oral hypoglycemic drugs

== ENCOUNTER 2017-12-23 07:47 | Day surgery (SDC) | payer OTHER ==
[2017-11-25 08:36] VITALS: BMI 35.0
[2017-12-23] MEDS ORDERED: Propofol 10 mg/ml Inj (20 ML) ONE (10:10)
[2017-12-23] MEDS ORDERED: Sodium Chloride 0.9% 1,000 ML IV SCH (11:15)
[2017-12-23 13:46] VITALS: BP 122/76; PULSE 83; RESP 18; TEMP 97.5; O2SAT 98
== END 2017-12-23 13:20 | disposition home or self-care (01) ==
LOC: ENDO 07:47
PROVIDERS: ATTEND Internal Medicine Gastroenterology
DX: K57.30 Diverticulosis of large intestine without perforation or abscess without bleeding (principal); K64.4 Residual hemorrhoidal skin tags; K64.8 Other hemorrhoids; E11.9 Type 2 diabetes mellitus without complications; E03.9 Hypothyroidism, unspecified
CPT/HCPCS: 45378; 82948; J2001; J2704; J7040 ×2

== ENCOUNTER 2019-01-26 10:38 | Outpatient (CLI) | payer BC | END 2019-01-26 10:39 | disposition home or self-care (01) | LOC: RAD 10:38 | DX: Z12.31 Encounter for screening mammogram for malignant neoplasm of breast (principal) ==